=== PATIENT | female | born 1940 | race Caucasian/White ===

== ENCOUNTER → 2023-09-15 15:15 | Outpatient (REF) | payer MEDICARE, SELFPAY | LOC: WDC 15:15 | PROVIDERS: ATTENDING PHYSICIAN Surgery; FAMILY PHYSICIAN Family Medicine | DX: Z12.31 Encounter for screening mammogram for malignant neoplasm of breast (principal) | CPT/HCPCS: 77063; 77067 ==

== ENCOUNTER → 2024-02-08 10:31 | Outpatient (REF) | payer MEDICARE, SELFPAY ==
[2024-02-08 12:21] LABS: % Basophils 0.3 % (0-2); % Immature Granulocytes 0.3 % (0-0.5); % Lymphocytes 49.9 % (20.5-51.1); % Monocytes 5.2 % (1.7-9.3); % Neutrophils 39.3 % (42.2-75.2); Absolute Eosinophils 0.7 10^3/uL (0-0.7); Absolute Immature Granulocytes 0.1 10^3/uL (0-0.05); Absolute Lymphocytes 7.3 10^3/uL (1.2-3.4); Absolute Monocytes 0.8 10^3/uL (0.1-0.6); Absolute Neutrophils 5.7 10^3/uL (1.4-6.5); Hematocrit 43.7 % (37.0-47.0); Hemoglobin 14.8 g/dL (12.0-16.0); Mean Corp Hgb Conc. 33.9 g/dL (33.0-37.0); Mean Corpuscular Volume 94.4 fL (81.0-99.0); Mean Platelet Volume 10.2 fL (7.4-10.4); Nucleated Red Blood Cells % 0 %; Platelet Count 409 10^3/uL (130-400); Red Blood Cell Count 4.63 10^6/uL (4.20-5.40); Red Cell Dist. Width 12.5 % (11.5-14.5); White Blood Cell Count 14.6 10^3/uL (4.8-10.8)
[2024-02-08 12:53] LABS: ALT (SGPT) 16 U/L (0-35); AST (SGOT) 19 U/L (14-36); Albumin 3.9 g/dl (3.5-5.0); Alkaline Phosphatase 76 U/L (38-126); Blood Urea Nitrogen 13 mg/dl (7-17); Calcium 9.9 mg/dl (8.4-10.2); Carbon Dioxide 24 mmol/L (22-30); Chloride 105 mmol/L (98-107); Glucose 81 mg/dl (70-99); HDL Cholesterol 53 mg/dl; LDL Cholesterol, Calculated 124 mg/dl; Potassium 4.7 mmol/L (3.5-5.1); Sodium 143 mmol/L (135-145); Total Bilirubin 0.4 mg/dl (0.2-1.3); Total Cholesterol 212 mg/dl (50-199); Total Protein 6.3 g/dl (6.3-8.2); Triglyceride 179 mg/dl (10-149); Very Low Density Lipoprotein 35 mg/dl (0-30); eGFR > 60.00
[2024-02-08 13:15] LABS: TSH 2.01 uIU/ml (0.47-4.68)
== END ==
LOC: REG 10:31
PROVIDERS: ATTENDING PHYSICIAN Family Medicine
DX: Z00.00 Encounter for general adult medical examination without abnormal findings (principal); R79.9 Abnormal finding of blood chemistry, unspecified; E78.2 Mixed hyperlipidemia; Z13.1 Encounter for screening for diabetes mellitus; Z13.29 Encounter for screening for other suspected endocrine disorder
CPT/HCPCS: 36415; 80053; 80061; 84443; 85025

== ENCOUNTER → 2024-08-22 13:54 | Outpatient (REF) | payer MEDICARE, SELFPAY | LOC: RAD 13:54 | PROVIDERS: ATTENDING PHYSICIAN Family Medicine | DX: M53.3 Sacrococcygeal disorders, not elsewhere classified (principal) | CPT/HCPCS: 72110; 72202 ==

== ENCOUNTER 2024-09-21 12:09 | Emergency (ER) | payer MEDICARE, SELFPAY ==
[2024-09-21 12:11] VITALS: BP 144/85
--- NOTE | 2024-09-21 13:19 | ED.GENMED ---
History of Present Illness
General
Chief Complaint: Back Pain
Source: patient and family
Exam Limitations: none
Time Seen by Provider: 09/21/24 12:38
Nursing documentation reviewed up to this point in time: agreed with
History of Present Illness
History of Present Illness:
Patient is an 84-year-old female who presents today for evaluation of pain. Patient reports for the past 5 to 6 weeks she has had pain to the right buttocks, lower back which radiates and shoots down her right leg. She denies any trauma related to
this symptom. She was seen by her family doctor for this had an outpatient x-ray was diagnosed with compression fractures. She was prescribed steroids in the beginning however now is taking hydrocodone which is not working. She has appoint with
Dr. Hahn orthopedic/pain management on Monday and 2 days. She is here today' for pain management.'
She denies any numbness tingling or weakness in extremities. Denies any bowel or bladder incontinence. She has been able to walk but does report pain is worse with ambulation and weightbearing on this right leg. She denies any recent trauma.
Past History
Past History
ED Past Medical History: GERD, Psychiatric (depression) and Other (OA,)
ED Past Surgical History: None
Social History
Tobacco: Non-smoker
Personal:
Living: with family
Employment: Retired
Review of Systems
Review of Systems
Allergies reviewed?: Yes
All Other Systems: ROS reviewed and negative except as documented in HPI and ROS
Constitutional: Reports no symptoms; Denies fever, fatigue or chills
: Denies incontinence
Musculoskeletal: Reports back pain (right lower back pain radiating to right leg )
Skin: Reports no symptoms
Neurological: Reports no symptoms and other (denies numbness tingling /weakness )
Psychiatric: Reports no symptoms
Phy Exam
General Physical Exam
General Presentation: no apparent distress
General age: appears stated age
General Skin: warm and dry
General Habitus: elderly
General Mental: alert
General Hydration: appears well hydrated
Neurological Exam
Neurological Exam: alert, oriented x3, no motor deficits, normal reflexs and other (Normal intact sensation to bilateral lower extremities normal dorsiflexion plantarflexion negative straight leg raise normal bilateral patellar reflexes)
Musculoskeletal Exam
Musculoskeletal Exam: other (Normal inspection to back no bony tenderness)
Skin Exam
Skin Exam: normal color and warm/dry
Psychiatric Exam
Psychiatric Exam: normal mood/affect
Course
Orders/Labs/Results
Orders:
Orders
09/21/24 13:21
Acetaminophen [Tylenol] 650 mg PO NOW STA
Lidocaine [Lidocaine 4% Patch] 1 patch TOPICAL NOW STA
Apply Lidocaine patch(s) to:: right lower back
09/21/24 13:22
Dexamethasone Pf [Decadron] 10 mg PO NOW STA
Vital Signs
Initial and Last Documented VS:
Initial Vital Signs
Temp Pulse Resp BP Pulse Ox
99.1 F 72 16 144/85 97
09/21/24 12:11 09/21/24 12:11 09/21/24 12:11 09/21/24 12:11 09/21/24 12:11
Last Documented Vital Signs
Temp Pulse Resp BP Pulse Ox
99.1 F 72 16 144/85 97
09/21/24 12:11 09/21/24 12:11 09/21/24 12:11 09/21/24 12:11 09/21/24 12:11
MDM/Problems Addressed
MDM/Problems Addressed:
Lumbar x-ray reviewed from August 22 shows moderate compression fractures of L3 and L5 vertebral bodies new from prior radiographs progressive severe compression of L2 and chronic severe compression of L1 .
patient has had low back pain which radiates to her right leg sciatica symptoms for the past 5 to 6 weeks seen by her family doctor diagnosed with compression fracture scheduled to see Dr. Hahn on Monday. She presents because of pain. She is on
hydrocodone which is not helping. On exam she has no neurological deficits normal dorsiflexion plantarflexion negative straight leg raise normal sensation. I did watch her ambulate and she does ambulate well with mild discomfort. She is not
getting no relief from hydrocodone. I did discuss with her that this is not recommended as a first-line management for back pain especially given her age and other factors such as constipation drowsiness etc. Will give a dose of steroid now and
will send a higher dose longer taper to the pharmacy. Will recommend Tylenol lidocaine patch.
Chronic conditions affecting care:
History of previous degenerative changes in back
*Pulse Oximetry
Patient hypoxic: no
*Critical Care Note
Total Time (30-74mins, 75-104mins- exclusive of procedures): Not Applicable
Data Reviewed
Review of Other/Old Records Reveals: Radiology Studies and Other (Lumbar x-ray reviewed from 08/22/24)
ED Attending Note
-
Portions of this chart may have been created with voice recognition software.� Occasional wrong word or��sound alike� substitutions may have occurred due to the inherent limitations of voice recognition software.
Discharge Plan
Departure
Patient Disposition: Home (Routine Discharge)
Date of Disposition: 09/21/24
Time of Disposition: 13:25
Patient with high blood pressure during this ER visit?: Yes
Condition: Fair
Covid-19: Not Applicable
Discharge Problem:
Low back pain, Sciatica
Instructions: Low Back Pain (DC), Sciatica (DC), BLOOD PRESSURE
Prescriptions:
New
prednisone 10 mg Tablet
See Rx Instructions .ROUTE .COMPLEX Qty: 30 0RF
Rx Instructions:
Take By Mouth:
40 mg daily x3 days, 30 mg daily x3 days,
20 mg daily x3 days, 10 mg daily x3 days.
lidocaine 5 % adhesive patch,medicated
1 patch topical DAILY Qty: 15 0RF
No Action
hydrocodone-acetaminophen 5 MG/500 MG tablet
1 tab PO .Q4-6HPRN PRN (Reason: PAIN) Qty: 20 0RF
prednisone 50 MG tablet
50 mg PO DAILY Qty: 4 0RF
clindamycin HCl 300 MG capsule
300 mg PO TID Qty: 30 0RF
Referrals:
Mauro Hahn, DO [Non-Admitting Privileges] -
Activity Restrictions/Additional Instructions:
As discussed you are given 1 dose of oral steroid here in the ER. Start prescription steroids tomorrow for the next 12 days. Follow-up with Dr. Hahn as scheduled on Monday. A prescription for lidocaine patch was sent to pharmacy use as
directed; in addition alternate with Tylenol. Return if any worsening of symptoms including bowel or bladder incontinence weakness in the extremities or any further concerns
Discharge Date and Time
Print Language: MALAY
[2024-09-21] MEDS: LIDOCAINE 4% PATCH 1 PATCH TOPICAL (13:38)
[2024-09-21] MEDS: DECADRON 10 MG PO (13:39)
[2024-09-21] MEDS: TYLENOL 650 MG PO (13:39)
== END 2024-09-21 14:23 | disposition home or self-care (01) ==
LOC: EMR 12:09
PROVIDERS: EMERGENCY PHYSICIAN Emergency Medicine; FAMILY PHYSICIAN Family Medicine
DX: M54.41 Lumbago with sciatica, right side (principal); M48.56XA Collapsed vertebra, not elsewhere classified, lumbar region, initial encounter for fracture
CPT/HCPCS: 99283

== ENCOUNTER → 2024-09-27 13:12 | Outpatient (REF) | payer MEDICARE, SELFPAY | LOC: PAVMRI 13:12 | PROVIDERS: ATTENDING PHYSICIAN Physical Medicine & Rehabilitation; FAMILY PHYSICIAN Family Medicine | DX: M54.16 Radiculopathy, lumbar region (principal) | CPT/HCPCS: 72148 ==

== ENCOUNTER 2025-01-15 20:22 | Observation (INO) | payer MEDICARE, SELFPAY ==
[2025-01-15] VITALS (10 sets, daily range): BP systolic 123–193; BP diastolic 56–98; BMI 23.5
--- NOTE | 2025-01-15 15:37 | ED.GENMED ---
History of Present Illness
General
Chief Complaint: Back Pain
Source: patient
Exam Limitations: none
Time Seen by Provider: 01/15/25 15:26
History of Present Illness
History of Present Illness:
Patient complaining of 2 weeks of bilateral mid back pain with some radiation around to the abdomen. Slight nausea at times. No vomiting no diarrhea. No chest pain shortness of breath. No urinary symptoms or lower extremity weakness numbness or
tingling. No incontinence. Patient has a history of back issues. She has had injections in the past. She felt she twisted about 10 days prior to the onset of symptoms. However she had no symptoms until 10 days later.
Past History
Past History
ED Past Medical History: GERD, Psychiatric (depression) and Other (OA,)
ED Past Surgical History: Gynecological and Other ([place] teeth)
Social History
Tobacco: Non-smoker
Personal:
Living: with family
Employment: Retired
Review of Systems
Review of Systems
All Other Systems: Not applicable
Constitutional: Denies fever
Respiratory: Reports no symptoms
Cardiac: Reports no symptoms
: Reports no symptoms
Phy Exam
Physical Exam
Physical Exam:
GENERAL: Alert and oriented in no apparent distress
EYE: Orbits normal.
NECK: Supple, no significant adenopathy.
ENT: Pharynx without erythema
CARDIAC: Regular rate and rhythm without any obvious murmurs.
LUNGS: Clear breath sounds,normal
ABDOMEN: Soft, mild epigastric tenderness. No rebound or guarding no mass or hernia. No pulsatile masses.
NEUROLOGICAL: Alert and oriented , grossly non-focal
SKIN: Warm and dry, no rash or lesion, no discoloration, skin intact.
MUSCULOSKELETAL: No edema,no deformity.Good color. Patient points to the mid back. No spinal tenderness no CVA tenderness
PSYCH: Normal and appropriate interaction.
Course
Orders/Labs/Results
Orders:
Orders
01/15/25 Dinner
Regular
At Your Request: Full Participation
01/15/25 15:36
Electrocardiogram (*1) Stat
Reason for Study: Abdominal Pain
CT Abd/Pel (IV only)-DH only Urgent
Comment:
Reason For Exam: Abdominal pain/back pain
0.9% Sodium Chloride 500 ml [Nss] 500 ml IV BOLUS
Ketorolac [Toradol] 15 mg IV NOW STA
Pulse Ox/cont/shift [RESP] Stat
Quantity: 1
01/15/25 15:51
C-Reactive Protein Urgent
Comment: ADD ON
Complete Blood Count/With Diff Urgent
Comprehensive Metabolic Panel Urgent
Erythrocyte Sed Rate Urgent
Comment: ADD ON
Lipase Urgent
01/15/25 16:47
Add On- LAB Urgent
Tests Added?: crp,esr
01/15/25 17:12
Urinalysis Reflex To Culture Urgent
Date Specimen was Collected: 01/15/25
Time Specimen was Collected: 17:10
Urine Microscopic Reflex Cult Urgent
01/15/25 17:38
Acetaminophen [Tylenol] 650 mg PO NOW STA
Morphine Sulfate 2 mg IV NOW STA
01/15/25 19:57
Admit/Transfer Patient As Directed
Co-Sign Provider:
Level of Care: Observation services
Assign to:: Medical/Surgical
Physician / Group: davide
Diagnosis: intractable back pain
PRN Pain Medication Management As Directed
May give lesser potent ordered pain med per pt: Yes
preference::
Protocol:: Medication orders for pain may be administered in a
manner that supports deferring to patient preference
when the pt is:
- Requesting an ordered lesser potent pain medication.
Least to most potent pain medications are defined
as: acetaminophen < NSAID < tramadol < opioids
(morphine, oxycodone, hydromorphone).
- Requesting a lesser dose of the same medication IF
ORDERED.
- Requesting a less intrusive route of administration
if both routes are prescribed by the provider (PO <
IV).
01/15/25 19:58
Code Status As Directed
Resuscitation Status: Full Code
01/15/25 20:48
Morphine Sulfate 2 mg IV Q4HPRN PRN
01/15/25 21:02
Acetaminophen [Tylenol] 650 mg PO Q4HPRN PRN
Heparin 5,000 units SC Q12
Ketorolac [Toradol] 10 mg IV Q6HPRN PRN
01/15/25 21:02
Activity As Directed
Activity Level: As Tolerated
Vital Signs As Directed
Frequency: Per unit guidelines
DX Deep Vein Thrombosis Video Routine
01/16/25 06:00
Complete Blood Count/With Diff IN AM
Comprehensive Metabolic Panel IN AM
Abnormal Lab Results
01/15/25 01/15/25
15:51 17:12
WBC 16.4 H 10^3/uL
(4.8-10.8)
MCH 31.4 H pg
(27.0-31.0)
Plt Count 522 H 10^3/uL
(130-400)
Abs Immat Gran (auto) 0.1 H 10^3/uL
(0-0.05)
Absolute Neuts (auto) 9.1 H 10^3/uL
(1.4-6.5)
Absolute Lymphs (auto) 6.0 H 10^3/uL
(1.2-3.4)
Absolute Monos (auto) 1.1 H 10^3/uL
(0.1-0.6)
ESR 23 H mm/hour
(0-20)
Sodium 134 L mmol/L
(135-145)
Lipase 22 L U/L
(23-300)
Urine Ketones 3+ A
(Negative)
Urine Bacteria (Reflex) Few A
(Negative)
Urine Albumin (Reflex) 1+ A
(Neg - Trace)
01/15/25 15:51
01/15/25 15:51
Vital Signs
Initial and Last Documented VS:
Initial Vital Signs
Temp Pulse Resp BP Pulse Ox
98.0 F 72 16 152/84 98
01/15/25 13:11 01/15/25 13:11 01/15/25 13:11 01/15/25 13:11 01/15/25 13:11
Last Documented Vital Signs
Temp Pulse Resp BP Pulse Ox
98.1 F 63 20 177/91 93
01/15/25 21:19 01/15/25 21:19 01/15/25 21:19 01/15/25 21:19 01/15/25 21:19
MDM/Problems Addressed
Differential Diagnosis Includes:
Patient with progressive low back pain over weeks. History of back issues. This may be musculoskeletal however with the pain radiating around to the mid abdomen and some nausea and abdominal etiology or referred pain to the back would have to be
considered. He highly doubt cardiac. Highly doubt neurosurgical issue. She has good lower extremity strength. Good plantar and dorsi flexion. Light touch is intact. No bowel incontinence or urinary incontinence. Workup in progress
*Radiology
Radiology exam reviewed: radiology read reviewed (Multiple degenerative changes and compression fractures of the back. All old. Appendicolith. Slightly dilated appendix. No stranding or inflammatory changes)
*Pulse Oximetry
SaO2: 98
Oxygen Mode of Delivery: Room air
Patient hypoxic: no
*Critical Care Note
Total Time (30-74mins, 75-104mins- exclusive of procedures): Not Applicable
Data Reviewed
Review of Other/Old Records Reveals: Labs, Records and Testing
Update Note
Update Note:
Clinically I feel patient's symptoms are likely all from her back. Highly doubt infectious issue despite the white count. There is sed rate and CRP are normal she has a normal neurologic exam and good lower extremity strength. She also has an
appendicolith and a white count although no other acute findings to support appendicitis. Clinically very low suspicion for appendicitis as she has no lower quadrant tenderness. This is likely a chronic finding. Warrants further inpatient
observation pain management and evaluation
ED Attending Note
-
Portions of this chart may have been created with voice recognition software.� Occasional wrong word or��sound alike� substitutions may have occurred due to the inherent limitations of voice recognition software.
Discharge Plan
Departure
Patient Disposition: Admit
Date of Disposition: 01/15/25
Time of Disposition: 19:31
Presentation/result/management discussed w/ accepting MD/DO: Hospitalist
Discharge Problem:
Intractable back pain, APPENDICOLITH
Interventions
Interventions:
*Risk Screen - Suicide Last Done: 01/15/25 13:11
*General Assessment Last Done: 01/15/25 16:00
*Neglect/Abuse Screening Last Done: 01/15/25 13:11
*ED COVID-19 Vaccine History Last Done: 01/15/25 16:00
*Nursing Disposition Last Done: 01/15/25 21:08
ED-Musculoskeletal Assessment Last Done: 01/15/25 16:00
Discharge Date and Time
Discharge Date/Time: 01/15/25 21:08
[2025-01-15] MEDS: TORADOL 15 MG IV (15:49)
[2025-01-15] MEDS: NSS 500 IV (15:51)
[2025-01-15 15:57] LABS: Hematocrit 42.0 % (37.0-47.0); Hemoglobin 14.3 g/dL (12.0-16.0); Mean Corp Hgb Conc. 34.0 g/dL (33.0-37.0); Mean Corpuscular Volume 92.3 fL (81.0-99.0); Nucleated Red Blood Cells % 0 %; Platelet Count 522 10^3/uL (130-400); Red Cell Dist. Width 12.2 % (11.5-14.5)
[2025-01-15 16:13] LABS: ALT (SGPT) 15 U/L (0-35); AST (SGOT) 19 U/L (14-36); Albumin 4.0 g/dl (3.5-5.0); Alkaline Phosphatase 69 U/L (38-126); Blood Urea Nitrogen 10 mg/dl (7-17); Calcium 9.5 mg/dl (8.4-10.2); Carbon Dioxide 23 mmol/L (22-30); Chloride 104 mmol/L (98-107); Glucose 94 mg/dl (70-99); Lipase 22 U/L (23-300); Potassium 4.3 mmol/L (3.5-5.1); Sodium 134 mmol/L (135-145); Total Protein 6.4 g/dl (6.3-8.2); eGFR > 60.00
[2025-01-15 17:27] LABS: Urine Character Clear (Clear)
[2025-01-15 17:37] LABS: Urine Red Blood Cell 0-2 /HPF (0-2)
[2025-01-15 17:43] LABS: C-Reactive Protein 6.10 mg/L (0.0-10.00)
[2025-01-15] MEDS: TYLENOL 650 MG PO ×2 (17:48→21:41)
[2025-01-15] MEDS: MORPHINE SULFATE 2 MG IV ×2 (17:49→20:53)
--- NOTE | 2025-01-15 19:59 | HPS.HSE ---
Family Physician
-
Family Physician: Alesha Schaffer MD
Chief Complaint
-
back pain
History of Present Illness
back pain
Medical History
Past Medical History
Past Medical History: Reports Other (chronic back pain/arthritis status post steroid injections, GERD, depression)
Past Surgical History: Reports Gynocological
Social History
Tobacco: Non-smoker
Alcohol: None
Drug: None
Family History
Family History: Not pertinent
Allergies / Home Medications
Allergies reflects when Allergies were last updated in [facility].
Home Medications with original date entered in [facility]
Allergy/Medication List:
Allergies
Allergy/AdvReac Type Severity Reaction Status Date / Time
Penicillins Allergy Hives Verified 01/15/25 13:13
Home Medications
hydrocodone 5 mg-acetaminophen 500 mg tablet 1 tab PO .Q4-6HPRN PRN PAIN #20 tabs 09/13/09
clindamycin HCl 300 mg capsule 300 mg PO TID #30 caps 11/29/17
prednisone 50 mg tablet 50 mg PO DAILY #4 tabs 11/29/17
lidocaine 5 % topical patch 1 patch topical DAILY #15 ea 09/21/24
prednisone 10 mg tablet See Rx Instructions .Route .COMPLEX #30 tabs 09/21/24
Review of Systems
-
Constitutional: Reports No Symptoms
EENT: Reports No Symptoms
Respiratory: Reports No Symptoms
Cardiac: Reports No Symptoms
Abdomen/GI: Reports No Symptoms
: Reports No Symptoms
Musculoskeletal: Reports No Symptoms
Skin: Reports No Symptoms
Neurological: Reports No Symptoms
Endocrine: Reports No Symptoms
Hematologic/Lymphatic: Reports No Symptoms
Psych: Reports No Symptoms
Physical Exam
Vital Signs
Vital Signs
Temp Pulse Resp BP Pulse Ox
98.0 F 72 16 152/84 98
01/15/25 13:11 01/15/25 13:11 01/15/25 13:11 01/15/25 13:11 01/15/25 15:42
Physical Exam
General: Well Developed, Well Nourished and No Apparent Distress
HEENT: NormoCephalic, Moist mucous membranes and Atraumatic
Respiratory: Clear
Cardiac: S1/S2 and Regular Rhythm; No Murmur or Rub
GI: Soft, Non Tender, Non Distended and Normal Bowel Sounds; No Organomegaly
Rectal: Deferred by Provider
Musculoskeletal: No Clubbing, No Cyanosis and No Edema
Skin: No Rash
Neuro: Nonfocal/grossly intact
Laboratory Results
-
01/15/25 15:51
01/15/25 15:51
Laboratory Results
Total Bilirubin 0.6 mg/dl (0.2-1.3) 01/15/25 15:51
AST 19 U/L (14-36) 01/15/25 15:51
ALT 15 U/L (0-35) 01/15/25 15:51
Alkaline Phosphatase 69 U/L (38-126) 01/15/25 15:51
Lipase 22 U/L (23-300) L 01/15/25 15:51
Data Reviewed
-
Lab Data: Labs Reviewed by me
Old Records: Reviewed
Impression/Plan
-
IMPRESSION:
PLAN:
# Intractable right lower back pain with radiation to the right abdomen likely musculoskeletal less likely secondary to appendiccolith
# Recent fall
- CT abdomen pelvis shows dilated base of the appendix containing appendicolith without inflammatory stranding to confirm acute appendicitis which may be chronic
-Urinalysis negative
- Tylenol, ketorolac, morphine for pain
- May require general surgery consult tomorrow if pain does not improve
Chronic back pain/osteoarthritis status post joint injections
GERD
Depression
Full code
DVT prophylaxis�heparin
Regular diet
[2025-01-15] MEDS: HEPARIN 5000 UNITS SC (21:14)
[2025-01-15] MEDS: TORADOL 10 MG IV (21:42)
[2025-01-16] MEDS: MORPHINE SULFATE 2 MG IV ×2 (01:13→07:35)
[2025-01-16] MEDS: HEPARIN 5000 UNITS SC ×2 (07:32→20:54)
[2025-01-16 07:56] LABS: Hematocrit 37.0 % (37.0-47.0); Hemoglobin 12.4 g/dL (12.0-16.0); Mean Corp Hgb Conc. 33.5 g/dL (33.0-37.0); Mean Corpuscular Volume 92.3 fL (81.0-99.0); Nucleated Red Blood Cells % 0 %; Platelet Count 474 10^3/uL (130-400); Red Cell Dist. Width 11.9 % (11.5-14.5)
[2025-01-16 08:00] VITALS: BP 178/92
[2025-01-16 08:48] LABS: ALT (SGPT) 25 U/L (0-35); AST (SGOT) 38 U/L (14-36); Albumin 3.2 g/dl (3.5-5.0); Alkaline Phosphatase 58 U/L (38-126); Blood Urea Nitrogen 11 mg/dl (7-17); Calcium 8.8 mg/dl (8.4-10.2); Carbon Dioxide 22 mmol/L (22-30); Chloride 106 mmol/L (98-107); Estimated Creatinine Clearance 59 ml/min; Glucose 82 mg/dl (70-99); Potassium 4.0 mmol/L (3.5-5.1); Sodium 134 mmol/L (135-145); Total Protein 5.4 g/dl (6.3-8.2); eGFR > 60.00
[2025-01-16] MEDS: TORADOL 10 MG IV (11:22)
[2025-01-16] MEDS: LIDOCAINE 4% PATCH 1 PATCH TOPICAL (12:16)
[2025-01-16] MEDS: MORPHINE SULFATE 4 MG IV ×2 (12:26→20:47)
--- NOTE | 2025-01-16 13:59 | W.PN.HOSP.TC ---
Today's Communication/Plan
-
Pain control
Flexeril
Lidocaine patch
PT
Assessment / Plan
Assessment / Plan
Physical Exam
General: Well Developed, Well Nourished and No Apparent Distress
HEENT: NormoCephalic, Moist mucous membranes and Atraumatic
Respiratory: Clear
Cardiac: S1/S2 and Regular Rhythm; No Murmur or Rub
GI: Soft, Non Tender, Non Distended and Normal Bowel Sounds; No Organomegaly
Rectal: Deferred by Provider
Musculoskeletal: No Clubbing, No Cyanosis and No Edema; Tenderness to lower paraspinal areas
Skin: No Rash
Neuro: Nonfocal/grossly intact
PLAN:
# Intractable right lower back pain with radiation to the right abdomen likely musculoskeletal less likely secondary to appendiccolith
# Recent fall
� Abdomen nondistended, nontender, appears nontoxic
� Pain is present paraspinally in the lower back, similar to previous episodes. Exacerbated after fall.
� I do not suspect this is secondary to any appendix/GI related issue at this time
� PT eval
� Add Flexeril
� Pain control
� Medrol pack if needed
� Lidocaine patch
� Will benefit from orthospine eval outpatient, has been following Dr. Hahn prior
Chronic back pain/osteoarthritis status post joint injections
GERD
Depression
Full code
DVT prophylaxis�heparin
Regular diet
Anticipated Discharge: Within 24 hours
Subjective/Interval History
-
Date of Service: January 16, 2025
Pain still present although on paraspinal areas bilaterally, with no abdominal tenderness or distention
Objective Data
-
Labs:
Laboratory Results
01/16/25
07:45
WBC 12.5 H
Hgb 12.4
Hct 37.0
Plt Count 474 H
Sodium 134 L
Potassium 4.0
Chloride 106
Carbon Dioxide 22
BUN 11
Creatinine 0.6
Glucose 82
Calcium 8.8
Total Bilirubin 0.5
AST 38 H
ALT 25
Alkaline Phosphatase 58
Vital Signs:
Vital Signs
Temp Pulse Resp BP Pulse Ox
97.7 F 62 16 178/92 95
01/16/25 08:00 01/16/25 08:00 01/16/25 08:00 01/16/25 08:00 01/16/25 08:00
Review of Systems
-
History Source: Patient
All other systems: Not reviewed unless documented
Data Reviewed
-
CT Scan: Report Reviewed by me
Labs: Labs Reviewed by me
--- NOTE | 2025-01-16 14:10 | CM ---
IA completed. DEL RIO given and form placed on chart. Met with pt and sister. Lives alone in 2 story home with BR on first floor. Was fully independent until pain exacerbation.No hx of HH, VN or SNF. Has walker, crutches and SPC at home. Confirmed PCP.
Rx insurance and drug coverage. NO insecurities identified. Family inquired about PT evaluation when pain is controlled. Per Dr. Flanagan, PT will be ordered when pain is controlled
Plan: Home with no needs
PCP: Alesha Schaffer
Rx. [facility].
[2025-01-16 15:35] VITALS: BP 139/76; PULSE 55
[2025-01-16 16:08] VITALS: BP 160/72
[2025-01-16] MEDS: REMOVE LIDOCAINE PATCH 1 PATCH REMOVE (20:54)
[2025-01-16 23:00] VITALS: BP 187/76
[2025-01-17] MEDS: TORADOL 10 MG IV ×2 (00:05→13:45)
[2025-01-17 04:03] VITALS: BP 154/79
[2025-01-17 07:00] VITALS: BP 182/93
[2025-01-17] MEDS: MORPHINE SULFATE 4 MG IV ×2 (07:52→11:53)
[2025-01-17] MEDS: HEPARIN 5000 UNITS SC (07:53)
[2025-01-17] MEDS: LIDOCAINE 4% PATCH 1 PATCH TOPICAL (07:54)
[2025-01-17 08:46] LABS: Hematocrit 37.9 % (37.0-47.0); Hemoglobin 12.8 g/dL (12.0-16.0); Mean Corp Hgb Conc. 33.8 g/dL (33.0-37.0); Mean Corpuscular Volume 92.0 fL (81.0-99.0); Platelet Count 497 10^3/uL (130-400); Red Cell Dist. Width 11.9 % (11.5-14.5)
[2025-01-17 09:14] LABS: ALT (SGPT) 46 U/L (0-35); AST (SGOT) 37 U/L (14-36); Albumin 3.2 g/dl (3.5-5.0); Alkaline Phosphatase 65 U/L (38-126); Blood Urea Nitrogen 14 mg/dl (7-17); Calcium 9.1 mg/dl (8.4-10.2); Carbon Dioxide 22 mmol/L (22-30); Chloride 107 mmol/L (98-107); Estimated Creatinine Clearance 59 ml/min; Glucose 84 mg/dl (70-99); Potassium 4.0 mmol/L (3.5-5.1); Sodium 135 mmol/L (135-145); Total Protein 5.4 g/dl (6.3-8.2); eGFR > 60.00
--- NOTE | 2025-01-17 11:36 | W.PN.HOSP.TC ---
Addendum entered and electronically signed by Rajinder Flanagan MD 01/17/25 14:52:
[id number]
Original Note:
Today's Communication/Plan
-
Lidocaine patch
Flexeril
F/u Orthospine outpt
outpatient pt
Assessment / Plan
Assessment / Plan
Physical Exam
General: Well Developed, Well Nourished and No Apparent Distress
HEENT: NormoCephalic, Moist mucous membranes and Atraumatic
Respiratory: Clear
Cardiac: S1/S2 and Regular Rhythm; No Murmur or Rub
GI: Soft, Non Tender, Non Distended and Normal Bowel Sounds; No Organomegaly
Rectal: Deferred by Provider
Musculoskeletal: No Clubbing, No Cyanosis and No Edema; Tenderness to lower paraspinal areas
Skin: No Rash
Neuro: Nonfocal/grossly intact
PLAN:
# Intractable right lower back pain with radiation to the right abdomen likely musculoskeletal less likely secondary to appendiccolith
# Recent fall
� Abdomen nondistended, nontender, appears nontoxic
� Pain is present paraspinally in the lower back, similar to previous episodes. Exacerbated after fall. - Improved after lidocaine patch
� I do not suspect this is secondary to any appendix/GI related issue at this time
� PT eval
� Add Flexeril
� Pain control
� Lidocaine patch - worked well
� Will benefit from orthospine eval outpatient, has been following Dr. Hahn prior
Chronic back pain/osteoarthritis status post joint injections
GERD
Depression
Full code
DVT prophylaxis�heparin
Regular diet
More than 30 minutes spent in discharge including
Final examination of the patient
Summarizing hospital stay
Instructions for continuing care to all relevant caregivers
Preparation of discharge records, prescriptions, and referral forms
Total time spent (in minutes): 36
Anticipated Discharge: Today
Subjective/Interval History
-
Date of Service: January 17, 2025
much improved
Objective Data
-
Labs:
Laboratory Results
01/17/25
08:34
WBC 10.5
Hgb 12.8
Hct 37.9
Plt Count 497 H
Sodium 135
Potassium 4.0
Chloride 107
Carbon Dioxide 22
BUN 14
Creatinine 0.6
Glucose 84
Calcium 9.1
Total Bilirubin 0.6
AST 37 H
ALT 46 H
Alkaline Phosphatase 65
Vital Signs:
Vital Signs
Temp Pulse Resp BP Pulse Ox
97.9 F 62 18 182/93 96
01/17/25 07:00 01/17/25 07:00 01/17/25 07:00 01/17/25 07:00 01/17/25 07:00
I&O
01/16/25 01/17/25 01/18/25
06:59 06:59 06:59
Intake Total 120 / 120
Balance 120 / 120
Review of Systems
-
History Source: Patient
All other systems: Not reviewed unless documented
Data Reviewed
-
CT Scan: Report Reviewed by me
Labs: Labs Reviewed by me
[2025-01-17] MEDS: FLEXERIL 5 MG PO (11:57)
--- NOTE | 2025-01-17 12:12 | W.DS.TRANS ---
DC Summary - Test Analyst
-
Discharge Instructions:
Discharge Diagnosis/Procedures Intractable lower paraspinal back pain likely
musculoskeletal
Activity As tolerated
Blood Work cbc and cmp in 1 week with pcp
Instructions:
Stand-Alone Forms:
Changes to Home Medications: No
Discharge Medications:
DC Medications w/original date entered in [facility]
acetaminophen 325 mg tablet 650 mg (2 x 325 mg) PO Q4HPRN PRN mild pain/PATEL/temp> 100.4F #180 tabs 01/17/25
ascorbic acid (vitamin C) 500 mg tablet (Vitamin C) 500 mg PO DAILY 01/17/25
cyclobenzaprine 10 mg tablet 5 mg (1/2 x 10 mg) PO Q8HPRN PRN spasms #15 tabs 01/17/25
fluoxetine 20 mg capsule 20 mg PO DAILY 01/17/25
gabapentin 400 mg tablet 400 mg PO TID 01/17/25
ibuprofen 200 mg tablet (Advil) 400 mg PO Q6HPRN PRN mild pain 01/17/25
lidocaine 4 % topical patch 1 patch topical DAILY #30 ea 01/17/25
mirtazapine 30 mg tablet 30 mg PO HS 01/17/25
omeprazole 20 mg tablet,delayed release 20 mg PO DAILY 01/17/25
therapeutic multivitamin 1 tab PO DAILY 01/17/25
Home Medication Changes
na
Pending Results: No
--- NOTE | 2025-01-17 13:15 | CM ---
Reviewed chart. Met with patient and family member at bedside. Pt is interested in home care and has selected [facility]. [facility]
Plan: Home with [facility]
[2025-01-17] MEDS: TYLENOL 650 MG PO (13:44)
--- NOTE | 2025-01-17 13:56 | VNURNOTE ---
Home Health Liaison met with patient at bedside to discuss [facility] nurse/therapy, visits, schedule and homebound status. Patient is agreeable and understands that visits at home will be 2-3 x per week to assess and teach medical management. Patient
is aware that [facility] will contact them for start of care in 1-2 days after discharge from . Patient is interested in only 1-2 VN visits, more interested in home PT. Will note on referral.
[facility] referral completed in [facility].
[2025-01-17 15:00] VITALS: BP 136/63
== END 2025-01-17 15:20 | disposition home health service (06) ==
LOC: 4 WEST ACU 20:22
PROVIDERS: ADMITTING PHYSICIAN Hospitalist; ATTENDING PHYSICIAN Internal Medicine; EMERGENCY PHYSICIAN Emergency Medicine; FAMILY PHYSICIAN Family Medicine
DX: M54.50 Low back pain, unspecified (principal); F32.A Depression, unspecified; K21.9 Gastro-esophageal reflux disease without esophagitis; G89.29 Other chronic pain
CPT/HCPCS: 74177; 80053; 81003; 81015; 83690; 85025; 85027; 85652; 86140; 93005; 96361; 96374; 96375; 97161; 99285; G0378; Q9967

== ENCOUNTER 2025-01-21 10:57 | Inpatient (IN) | payer MEDICARE, SELFPAY ==
[2025-01-18 17:52] VITALS: BP 144/90
[2025-01-18 20:25] VITALS: BMI 22.6
[2025-01-18] MEDS: ZOFRAN 4 MG IV (22:29)
[2025-01-18] MEDS: MORPHINE SULFATE 2 MG IV (22:32)
--- NOTE | 2025-01-18 23:18 | ED.GENMED ---
History of Present Illness
General
Chief Complaint: Back Pain
Source: patient and family
Exam Limitations: none
Time Seen by Provider: 01/18/25 20:20
Nursing documentation reviewed up to this point in time: agreed with
History of Present Illness
History of Present Illness:
Note:
CHIEF COMPLAINT(S)
Severe back pain persisting since a fall in December.
HISTORY OF PRESENT ILLNESS
The patient is an 84-year-old female who presents with persistent back pain following a fall in December where she twisted and landed on her back. Since the incident, she has been experiencing continuous pain which has not substantially resolved with
the current regimen. The patient reports that she had imaging of her lumbar spine, including a magnetic resonance imaging (MRI) and a computed tomography (CT) scan, and was discharged from her last admission despite persistent pain.
In the past, the patient has received therapeutic injections for her back pain, which provided temporary relief; however, these interventions are no longer effective. She currently uses lidocaine patches, which helped initially but no longer
alleviate the pain significantly. The patient lives alone and expresses difficulty managing her activities of daily living due to severe pain, expressing that movement, including walking and even getting to the bathroom, is substantially limited.
The patient was seen a few days ago, underwent a CT scan, and was admitted for two nights due to severe back pain. The recent hospitalization did not result in significant pain relief, and the patient reports experiencing confusion, complicating her
ability to manage at home. There is a suggestion of a potential adverse reaction to medication provided during her recent admission.
ADDITIONAL HISTORY OBTAINED FROM SOURCES OTHER THAN THE PATIENT
According to the patients relative, Dr. Hahn, an intervention specialist, has previously provided injections that were effective during the spring prior to the fall in December, but the patient has not seen him for follow-up care since the incident.
SOCIAL DETERMINANTS AFFECTING HEALTH
The patient lives alone, which poses a safety risk considering her current level of pain and impaired mobility. She lacks a support system that could assist her with daily activities or emergencies.
REVIEW OF SYSTEMS
- Musculoskeletal: Chronic back pain since December, worsening post-fall.
- Neurological: Confusion noted during recent hospital admission.
PHYSICAL EXAM
General: Alert, in distress due to pain.
Musculoskeletal: Pain reported on leg lifts and movements suggestive of exacerbation of back pain.
PROBLEM LIST
Acute Problems:
- Severe back pain following a fall and twisting injury.
Chronic Problems:
- Chronic back pain requiring past orthopedic interventions.
PLAN
- Administer a small dose of morphine to manage acute pain.
- Admit for case management to address safety concerns in the home environment due to severe pain and impaired mobility.
- Evaluate the patients pain management plan and consider a rehabilitation facility for sustained care and pain control.
DIFFERENTIAL DIAGNOSIS
The Differential Diagnosis includes, in no particular order and is not limited to:
1. Lumbar spine pain. Previous CT neg for fx
2. Musculoskeletal strain or sprain
3. Degenerative disc disease
4. Spinal stenosis
5. Osteoarthritis
6. Radiculopathy
7. Sacroiliitis
8. Vertebral compression fracture
9. Lumbar herniated disc
10. Acute exacerbation of chronic back pain
Disposition:
SUMMARY OF ENCOUNTER
The patient, an 84-year-old female, presented to the emergency department due to chronic low back pain, which persists despite previous hospital admission and treatment with lidocaine patches. She reports her pain level has not changed since being
discharged. Her daughter is concerned about her living alone, especially if pain management is escalated. Its acknowledged by both the patient and her daughter that a jail facility or rehabilitation facility might be necessary.
DISPOSITION
Admit
ASSESSMENT
Chronic low back pain unresponsive to current pain management strategies.
PLAN
Admit the patient to the hospital service for enhanced pain management and evaluate for possible transfer to a jail or rehabilitation facility for better support and care.
MEDICATION RECONCILIATION
Current use of lidocaine patches as pain management, though deemed ineffective at this time.
MEDICAL DECISION MAKING
-Complexity of Data Reviewed: Chronic conditions affecting care including chronic back pain since the fall in December. Differential diagnosis includes lumbar spine fracture, musculoskeletal strain or sprain, degenerative disc disease, spinal stenosis,
osteoarthritis, radiculopathy, sacroiliitis, vertebral compression fracture, lumbar herniated disc, and acute exacerbation of chronic back pain.
-Data:
Category 2: Clinical information was obtained from an independent historian, the patients daughter, who provided input on the patients living situation and need for potential placement in a facility.
-Risk: Decisions to escalate care by admitting the patient for appropriate pain management and evaluation for safer living arrangements due to social determinants affecting health, as the patient lives alone with inadequate pain control and mobility
issues.
DIAGNOSIS
Chronic low back pain, ICD-10 code M54.5.
Past History
Past History
ED Past Medical History: GERD, Psychiatric (depression) and Other (OA,)
ED Past Surgical History: Gynecological and Other ([place] teeth)
Social History
Tobacco: Non-smoker
Personal:
Living: with family
Employment: Retired
Phy Exam
General Physical Exam
General Presentation: moderate distress
General age: appears stated age
General Skin: warm
General Habitus: elderly
General Mental: alert
General Hydration: appears well hydrated
Course
Orders/Labs/Results
Orders:
Orders
01/18/25 21:52
Case Management Consult ONCE
Case Management Consult: Discharge Planning
Comment: Lives alone, was discharged yesterday for intractable back pain. Home meds are not relieving her
pain. Family is concerned because she lives alone would prefer that she go to a jail
facility
Morphine Sulfate 2 mg IV NOW STA
Ondansetron Injectable [Zofran] 4 mg IV NOW STA
01/18/25 23:20
Lumbar Spine Complete, 4 View [CR Lumbar Spine Comp Min 4 Vw*] Urgent
Comment:
Reason For Exam: back pain
Vital Signs
Initial and Last Documented VS:
Initial Vital Signs
Temp Pulse Resp BP Pulse Ox
98.2 F 76 16 144/90 97
01/18/25 17:52 01/18/25 17:52 01/18/25 17:52 01/18/25 17:52 01/18/25 17:52
Last Documented Vital Signs
Temp Pulse Resp BP Pulse Ox
98.2 F 76 16 144/90 99
01/18/25 17:52 01/18/25 17:52 01/18/25 17:52 01/18/25 17:52 01/18/25 23:20
*Pulse Oximetry
SaO2: 99
Oxygen Mode of Delivery: Room air
Patient hypoxic: no
*Critical Care Note
Total Time (30-74mins, 75-104mins- exclusive of procedures): Not Applicable
ED Attending Note
-
Portions of this chart may have been created with voice recognition software.� Occasional wrong word or��sound alike� substitutions may have occurred due to the inherent limitations of voice recognition software.
Discharge Plan
Departure
Patient Disposition: Admit
Date of Disposition: 01/18/25
Time of Disposition: 23:22
Presentation/result/management discussed w/ accepting MD/DO: Hospitalist
Discharge Problem:
Acute exacerbation of chronic low back pain
Prescriptions:
No Action
cyclobenzaprine 10 mg Tablet
5 mg PO Q8HPRN PRN (Reason: spasms) Qty: 15 0RF
lidocaine 4 % Adhesive Patch,Medicated
1 patch topical DAILY Qty: 30 0RF
acetaminophen 325 mg Tablet
650 mg PO Q4HPRN PRN (Reason: mild pain/PATEL/temp> 100.4F) Qty: 180 0RF
therapeutic multivitamin Tablet
1 tab PO DAILY
ascorbic acid (vitamin C) [Vitamin C] 500 mg Tablet
500 mg PO DAILY
mirtazapine 30 mg Tablet
30 mg PO HS
ibuprofen [Advil] 200 mg Tablet
400 mg PO Q6HPRN PRN (Reason: mild pain)
fluoxetine 20 mg Capsule
20 mg PO DAILY
gabapentin 400 mg Tablet
400 mg PO TID
omeprazole 20 mg Tablet,Delayed Release (Dr/Ec)
20 mg PO DAILY
Referrals:
Alesha Schaffer MD [Family Provider, Family Practice]
Interventions
Interventions:
*Risk Screen - Suicide Last Done: 01/18/25 17:52
*General Assessment Last Done: 01/18/25 20:26
*Neglect/Abuse Screening Last Done: 01/18/25 17:52
*ED- Fall Risk Assessment Last Done: 01/18/25 20:26
*ED COVID-19 Vaccine History Last Done: 01/18/25 20:26
ED-Musculoskeletal Assessment Last Done: 01/18/25 20:26
Discharge Date and Time
Print Language: MONGOLIAN
--- NOTE | 2025-01-19 00:14 | HPS.HSE ---
Family Physician
-
Family Physician: Alesha Schaffer MD
Chief Complaint
-
Back pain
History of Present Illness
Is an 84-year-old female with past medical history of GERD, depression, chronic back pain following fall in December will presents to the emergency department after being discharged from the hospital for similar complaints.
Patient was seen 2 days ago for intractable lower back pain and radiating to the abdomen, nontender and no rebound pain or distention. Pain was felt secondary to musculoskeletal resolved back pain for which she follows with Dr. Hahn. She was
monitoring as below, she was given lidocaine patch and Flexeril was added. She had good improvement at that time and was felt stable enough to go home after being admitted for 2 nights.
She now states that recentralization did not result in significant pain relief and she is experiencing some confusion complicating ability to manage at home. Only new medication was a Flexeril. She has been on gabapentin prior to the admission.
In the emergency department she was afebrile, hemodynamically stable with a blood pressure of 140/90 and a pulse rate of 76.
Reviewed prior imaging from her last admission showing no acute findings.
Medical History
Past Medical History
Past Medical History: Reports Other (chronic back pain/arthritis status post steroid injections, GERD, depression)
Past Surgical History: Reports Gynocological
Social History
Tobacco: Non-smoker
Alcohol: None
Drug: None
Family History
Family History: Not pertinent
Allergies / Home Medications
Allergies reflects when Allergies were last updated in [employer].
Home Medications with original date entered in [employer]
Allergy/Medication List:
Allergies
Allergy/AdvReac Type Severity Reaction Status Date / Time
Penicillins Allergy Hives Verified 01/15/25 13:13
Home Medications
hydrocodone 5 mg-acetaminophen 500 mg tablet 1 tab PO .Q4-6HPRN PRN PAIN #20 tabs 09/13/09
clindamycin HCl 300 mg capsule 300 mg PO TID #30 caps 11/29/17
prednisone 50 mg tablet 50 mg PO DAILY #4 tabs 11/29/17
lidocaine 5 % topical patch 1 patch topical DAILY #15 ea 09/21/24
prednisone 10 mg tablet See Rx Instructions .Route .COMPLEX #30 tabs 09/21/24
Review of Systems
-
Constitutional: Reports No Symptoms
EENT: Reports No Symptoms
Respiratory: Reports No Symptoms
Cardiac: Reports No Symptoms
Abdomen/GI: Reports No Symptoms
: Reports No Symptoms
Musculoskeletal: Reports No Symptoms
Skin: Reports No Symptoms
Neurological: Reports No Symptoms
Endocrine: Reports No Symptoms
Hematologic/Lymphatic: Reports No Symptoms
Psych: Reports No Symptoms
Physical Exam
Vital Signs
Vital Signs
Temp Pulse Resp BP Pulse Ox
98.2 F 76 16 144/90 99
01/18/25 17:52 01/18/25 17:52 01/18/25 17:52 01/18/25 17:52 01/18/25 23:20
Physical Exam
General: Well Developed, Well Nourished and No Apparent Distress
HEENT: NormoCephalic, Moist mucous membranes and Atraumatic
Respiratory: Clear
Cardiac: S1/S2 and Regular Rhythm; No Murmur or Rub
GI: Soft, Non Tender, Non Distended and Normal Bowel Sounds; No Organomegaly
Rectal: Deferred by Provider
Musculoskeletal: No Clubbing, No Cyanosis and No Edema
Skin: No Rash
Neuro: Nonfocal/grossly intact
Data Reviewed
-
Lab Data: Labs Reviewed by me
Old Records: Reviewed
Impression/Plan
-
IMPRESSION:
Patient was just admitted for chronic intractable back pain radiating to the right abdomen that was felt to be musculoskeletal. She was started on lidocaine patch and Flexeril with improvement and then discharged to home after being observed for 2
days. Patient unable to manage at home due to pain and is basically coming in for ambulatory dysfunction.
PLAN:
Chronic back pain and ambulatory dysfunction:
- admit to med/surg obs
- continue pain management with tylenol, toradol and gabapentin
- will hold off on flexeril for now
- continue lidocaine patch
- pt eval when pain beter control for possible STR
- outpatient ortho/spine eval
DVT prophylaxis�heparin sq
Full code
[2025-01-19] MEDS: TORADOL 10 MG IV ×3 (01:12→23:00)
[2025-01-19 02:51] VITALS: BP 172/70; BMI 24.4
[2025-01-19] MEDS: DILAUDID 0.5 MG IV (03:11)
--- NOTE | 2025-01-19 03:20 | PTCARENOTE ---
pt admit to room 413 from ED via stretcher. Ambulated into room with assist of staff. Pt has considerable amount of pain. Assessment as charted. Med for pain as ordered. Bed alarm in place.
[2025-01-19 07:09] VITALS: BP 165/82
[2025-01-19] MEDS: PROZAC 20 MG PO (09:44)
[2025-01-19] MEDS: PROTONIX 40 MG PO (09:44)
[2025-01-19] MEDS: HEPARIN 5000 UNITS SC ×3 (09:44→23:00)
[2025-01-19] MEDS: NEURONTIN 400 MG PO ×3 (09:44→22:59)
[2025-01-19] MEDS: VITAMIN C 500 MG PO (09:45)
[2025-01-19] MEDS: LIDOCAINE 4% PATCH 1 PATCH TOPICAL (09:45)
--- NOTE | 2025-01-19 10:24 | CM ---
Patient seen bedside, initial assessment completed. Patient is a 84-year-old female with past medical history of GERD, depression, chronic back pain following fall in December will presents to the emergency department after being discharged from the
hospital for similar complaints.
Patient resides alone in a 2STH, bedroom and bathroom located on the first floor. Patient is independent w/ RW, cane, has crutches. Independent w/ ADLs. No SNF hx, current w/ [facility].
Address, point of contact and insurance verified
PCP: Alesha Schaffer
Pharmacy: [facility] [place]
Patient admitted obs status. DEL RIO form verbally reviewed, copy provided, copy on chart
Plan: Anticipate home, [place] w/ [facility]
--- NOTE | 2025-01-19 10:44 | PTCARENOTE ---
pt groggy oriented to self and place at times. weak one person assist to bathroom.
--- NOTE | 2025-01-19 13:49 | W.PN.HOSP.TC ---
Today's Communication/Plan
-
avoid sedatives
MR Spine
PT/OT
Assessment / Plan
Assessment / Plan
Physical Exam
General: Well Developed, Well Nourished and No Apparent Distress
HEENT: NormoCephalic, Moist mucous membranes and Atraumatic
Respiratory: Clear
Cardiac: S1/S2 and Regular Rhythm; No Murmur or Rub
GI: Soft, Non Tender, Non Distended and Normal Bowel Sounds; No Organomegaly
Rectal: Deferred by Provider
Musculoskeletal: No Clubbing, No Cyanosis and No Edema
Skin: No Rash
Neuro: Nonfocal/grossly intact
Patient was just admitted for chronic intractable back pain radiating to the right abdomen that was felt to be musculoskeletal. She was started on lidocaine patch and Flexeril with improvement and then discharged to home after being observed for 2
days. Patient unable to manage at home due to pain and is basically coming in for ambulatory dysfunction.
PLAN:
Chronic back pain and ambulatory dysfunction:
- admit to med/surg obs
- continue pain management with tylenol, toradol and gabapentin
- will hold off on flexeril for now, avoid sedatives
- continue lidocaine patch
- pt eval when pain beter control for possible STR
- outpatient ortho/spine eval
- MR Spine
#Lethargy
-avoid sedatives
-F/u UA
DVT prophylaxis�heparin sq
Full code
Total time spent on today's encounter was 51 minutes which included time spent in counseling the patient/family regarding diagnosis and treatment plan as listed above, goals of care, and symptom management. Case was discussed with nursing staff,
specialists, and care coordinators/case management. All labs and imaging personally reviewed by me. Remainder the time spent in detailed review of previous records, lab data, imaging, and other medical provider documentation.
Anticipated Discharge: Within 24 hours
Subjective/Interval History
-
Date of Service: January 19, 2025
lethargic today
Objective Data
-
Vital Signs:
Vital Signs
Temp Pulse Resp BP Pulse Ox
98.9 F 71 18 165/82 94
01/19/25 07:09 01/19/25 07:09 01/19/25 07:09 01/19/25 07:09 01/19/25 07:09
Review of Systems
-
History Source: Patient
All other systems: Not reviewed unless documented
Data Reviewed
-
CT Scan: Report Reviewed by me
Labs: Labs Reviewed by me
[2025-01-19 15:07] VITALS: BP 143/64
[2025-01-19 16:51] LABS: Urine Character Clear (Clear)
[2025-01-19 16:59] LABS: Urine Squamous Cell 16-20 /LPF (Few)
[2025-01-19 17:00] LABS: Urine Red Blood Cell 0-2 /HPF (0-2)
[2025-01-19] MEDS: REMERON 30 MG PO (22:59)
[2025-01-19 23:21] VITALS: BP 149/79
[2025-01-20 06:59] VITALS: BP 166/86
[2025-01-20] MEDS: LIDOCAINE 4% PATCH 1 PATCH TOPICAL (07:58)
[2025-01-20] MEDS: HEPARIN 5000 UNITS SC ×3 (07:59→23:09)
[2025-01-20] MEDS: PROZAC 20 MG PO (08:00)
[2025-01-20] MEDS: PROTONIX 40 MG PO (08:00)
[2025-01-20] MEDS: VITAMIN C 500 MG PO (08:00)
[2025-01-20] MEDS: NEURONTIN 400 MG PO ×3 (08:01→21:02)
[2025-01-20] MEDS: TORADOL 10 MG IV (08:18)
[2025-01-20 09:08] LABS: Hematocrit 41.7 % (37.0-47.0); Hemoglobin 14.2 g/dL (12.0-16.0); Mean Corp Hgb Conc. 34.1 g/dL (33.0-37.0); Mean Corpuscular Volume 92.7 fL (81.0-99.0); Platelet Count 579 10^3/uL (130-400); Red Cell Dist. Width 12.2 % (11.5-14.5)
[2025-01-20 09:45] LABS: ALT (SGPT) 25 U/L (0-35); AST (SGOT) 19 U/L (14-36); Albumin 3.7 g/dl (3.5-5.0); Alkaline Phosphatase 76 U/L (38-126); Blood Urea Nitrogen 12 mg/dl (7-17); Calcium 9.3 mg/dl (8.4-10.2); Carbon Dioxide 20 mmol/L (22-30); Chloride 105 mmol/L (98-107); Estimated Creatinine Clearance 46 ml/min; Glucose 80 mg/dl (70-99); Potassium 4.3 mmol/L (3.5-5.1); Sodium 136 mmol/L (135-145); Total Protein 5.9 g/dl (6.3-8.2); eGFR > 60.00
--- NOTE | 2025-01-20 11:26 | W.PN.HOSP.TC ---
Today's Communication/Plan
-
see PN
Assessment / Plan
Assessment / Plan
84yo F with PMHX of chronic back pain s/p injections in the past, neuropathy, anxiety, GERD, insomnia, had twisted her back on 12/24/24, but initially without any symptoms, in 2 weeks woke up with severe lower back pain. MRI with multilevel DJD, no
significant spinal canal stenosis. Chronic compression deformities of T7, L1, L2, L3 and L5. Accidental findings of appendicolith without inflammatory changes on CT abd.
A/P:
#Chronic compression deformities of T7, L1, L2, L3 and L5
#DJD
Pain mgmt
trial of steroids
PT/OT
#Appendicolith
no concern for inflammation on CT
#Lethargy on admission
UA positive for infection, however resolved off Abx
most likely asymptomatic bacteriuria
#anxiety
#GERD
#Neuropathy
cont home meds
DVT ppx hep
Full code
I have spent at least 55min reviewing chart, test results, communication with family and providing direct patient care
Anticipated Discharge: > 48 hours
Subjective/Interval History
-
Date of Service: January 20, 2025
Objective Data
-
Labs:
Laboratory Results
01/20/25
08:24
WBC 12.0 H
Hgb 14.2
Hct 41.7
Plt Count 579 H
Sodium 136
Potassium 4.3
Chloride 105
Carbon Dioxide 20 L
BUN 12
Creatinine 0.7
Glucose 80
Calcium 9.3
Total Bilirubin 0.5
AST 19
ALT 25
Alkaline Phosphatase 76
Vital Signs:
Vital Signs
Temp Pulse Resp BP Pulse Ox
97.8 F 64 16 166/86 95
01/20/25 06:59 08/18/25 06:59 01/20/25 06:59 01/20/25 06:59 01/20/25 08:00
I&O
01/19/25 01/20/25 01/21/25
06:59 06:59 06:59
Intake Total 600 / 600
Balance 600 / 600
Review of Systems
-
History Source: Patient
Musculoskeletal: Reports Other (lower back pain)
Physical Exam
-
General: Well Developed
HEENT: Normocephalic
Respiratory: Clear to Auscultation
Cardiac: Regular Rhythm
Musculoskeletal: No Clubbing, No Cyanosis and No Edema
Neuro: Awake, Alert, Oriented and AO x 3
Psych: Calm
[2025-01-20] MEDS: DELTASONE 30 MG PO (11:39)
[2025-01-20] MEDS: ROXICODONE 5 MG PO (11:40)
--- NOTE | 2025-01-20 13:05 | CM ---
Spoke with patient, sister and niece.
Sister upset patient is observation status. Reviewed observation status with sister.
PT/OT evals pending.
Family would like skilled vs acute rehab.
Patient does qualify for [facility] program, reviewed options with Sandra. Will send referrals once PT/OT evals completed.
Plan: inpatient vs outpatient therapy depending on evals.
[2025-01-20 13:29] VITALS: BP 135/76; BP 141/73; PULSE 63; O2SAT 94
[2025-01-20 15:01] VITALS: BP 133/75
[2025-01-20] MEDS: REMERON 30 MG PO (21:04)
[2025-01-20 23:55] VITALS: BP 123/60
[2025-01-21 07:52] LABS: Hematocrit 41.2 % (37.0-47.0); Hemoglobin 14.0 g/dL (12.0-16.0); Mean Corp Hgb Conc. 34.0 g/dL (33.0-37.0); Mean Corpuscular Volume 90.4 fL (81.0-99.0); Nucleated Red Blood Cells % 0 %; Platelet Count 516 10^3/uL (130-400); Red Cell Dist. Width 12.2 % (11.5-14.5)
[2025-01-21 07:53] VITALS: BP 153/76
[2025-01-21] MEDS: LIDOCAINE 4% PATCH 1 PATCH TOPICAL (08:26)
[2025-01-21] MEDS: DELTASONE 30 MG PO (08:27)
[2025-01-21] MEDS: PROTONIX 40 MG PO (08:27)
[2025-01-21] MEDS: NEURONTIN 400 MG PO ×3 (08:28→21:14)
[2025-01-21] MEDS: VITAMIN C 500 MG PO (08:28)
[2025-01-21] MEDS: HEPARIN 5000 UNITS SC ×3 (08:28→23:06)
[2025-01-21] MEDS: PROZAC 20 MG PO (08:28)
[2025-01-21] MEDS: SENOKOT-S 1 TABLET PO (08:29)
[2025-01-21] MEDS: ROXICODONE 5 MG PO (08:31)
[2025-01-21 08:33] LABS: ALT (SGPT) 20 U/L (0-35); AST (SGOT) 19 U/L (14-36); Albumin 3.7 g/dl (3.5-5.0); Alkaline Phosphatase 69 U/L (38-126); Blood Urea Nitrogen 16 mg/dl (7-17); Calcium 9.7 mg/dl (8.4-10.2); Carbon Dioxide 18 mmol/L (22-30); Chloride 108 mmol/L (98-107); Estimated Creatinine Clearance 46 ml/min; Glucose 86 mg/dl (70-99); Potassium 4.6 mmol/L (3.5-5.1); Sodium 136 mmol/L (135-145); Total Protein 6.0 g/dl (6.3-8.2); eGFR > 60.00
--- NOTE | 2025-01-21 09:54 | PHA.VAN.IN ---
Addendum entered and electronically signed by Deepa Snow [facility] 01/21/25 10:18:
Agree with assessment and plan
Original Note:
Assessment
- Assessment
Renal Function: Appears similar to baseline
AUC Dosing Plan
- Dosing Variables
Dosing Weight (kg): 58.542
Dosing CrCl (ml/min): 46
Vd coefficient (L/kg): 0.7
- Empiric Dosing
Initial / Loading Dose: to receive 1500mg load now
Maintenance Regimen: 750mg q24h
Estimated AUC (mcg*h/mL): 439
Estimated Peak (mcg*h/mL): 28.6
Estimated Trough (mcg/ml): 10.7
Estimated Half Life (H): 16.3
Plan
- Plan
Monitoring: consider within next few days
Pharmacokinetics Vancomycin I
- -
Patient Age: 84
Patient Sex: Female
Vancomycin Day #: 1
Indication: Genito-Urinary Tract
Requesting Provider: Dr. Mckeon
Pertinent Antimicrobial Allergies:
penicillins - hives; unknown onset
Height / Weight:
Height 5 ft 1 in
Actual Weight 58.542 kg
- Vital Signs / Lab Results
Temp Pulse Resp BP Pulse Ox
98.2 F 65 18 153/76 99
01/21/25 07:53 01/21/25 07:53 01/21/25 07:53 01/21/25 07:53 01/21/25 07:53
Lab Results - Hematology
01/20/25 01/21/25
08:24 07:24
WBC 12.0 H 16.7 H
Lab Results - Chemistry
01/20/25 01/21/25
08:24 07:24
BUN 12 16
Creatinine 0.7 0.7
Estimated Creat Clear 46 46
Albumin 3.7 3.7
Lab Results - Urine
01/19/25
16:39
Urine Nitrite (Reflex) Negative
Leukocyte Esterase Rfl 2+ A
Urine WBC (Reflex) 6-10
Ur Squamous Epith Cells 16-20
Urine Bacteria (Reflex) Moderate A
Microbiology Results
01/19/25 16:39 Urine Culture - Preliminary
Urine Enterococcus species
[2025-01-21] MEDS: VANCOCIN 530 MG IV (09:57)
--- NOTE | 2025-01-21 10:29 | CM ---
Addendum entered by Demi Pedraza 01/21/25 11:36:
Discussed w/ physician advisor, patient now receiving IV vancomycin, can upgrade to IP
Inpatient admission orders are in
Updated patient's sister, aware that patient needs a 3 night IP stay. CM stated patient can still use the waiver at [facility] if patient is medically stable before the 3 days.
Original Note:
Chart reviewed. Therapy rec SNF at d/c. Family provided SNF list for [facility] waiver as patient remains obs status and qualifies for the waiver.
CM spoke w/ patient 's sister, Sandra, for SNF options. Sandra identified [facility] but is asking if and when patient's LOC would be changed to inpatient. Sandra shared she was informed yesterday that patient does not have a IP medical dx at
this time but would like to speak w/ the physician advisor regarding this. CM TT physician advisor about patient's sister wanting a phone call.
Referral sent to [facility] in [facility]
Plan: SNF; will be using [facility] waiver if remains obs status
[2025-01-21 10:30] VITALS: BP 177/93; PULSE 65; O2SAT 95
--- NOTE | 2025-01-21 10:35 | W.PN.HOSP.TC ---
Today's Communication/Plan
-
pending Ucx
cont pain mgmt
steroids
Assessment / Plan
Assessment / Plan
84yo F with PMHX of chronic back pain s/p injections in the past, neuropathy, anxiety, GERD, insomnia, had twisted her back on 12/24/24, but initially without any symptoms, in 2 weeks woke up with severe lower back pain. MRI with multilevel DJD, no
significant spinal canal stenosis. Chronic compression deformities of T7, L1, L2, L3 and L5. Accidental findings of appendicolith without inflammatory changes on CT abd.
A/P:
#Chronic compression deformities of T7, L1, L2, L3 and L5
#DJD
Pain mgmt: patient reportedly was able to function and ambulate with current pain meds, however still has bouts of shooting pain when turning in the bed. Partially the problem is an expectations from the patient to have pain removed entirely and
immediately. Explained that will target relieve and it might take days.
trial of steroids
PT/OT
#Appendicolith
no concern for inflammation on CT
#Lethargy on admission
#UTI
UA positive for infection, Cx growing enterococcus
Reasonable to treat
#anxiety
#GERD
#Neuropathy
cont home meds
DVT ppx hep
Full code
I have spent at least 51min reviewing chart, test results, communication with family and providing direct patient care
Anticipated Discharge: 24 - 48 hours
Subjective/Interval History
-
Date of Service: January 21, 2025
Objective Data
-
Labs:
Laboratory Results
01/21/25
07:24
WBC 16.7 H
Hgb 14.0
Hct 41.2
Plt Count 516 H
Sodium 136
Potassium 4.6
Chloride 108 H
Carbon Dioxide 18 L
BUN 16
Creatinine 0.7
Glucose 86
Calcium 9.7
Total Bilirubin 0.4
AST 19
ALT 20
Alkaline Phosphatase 69
Vital Signs:
Vital Signs
Temp Pulse Resp BP Pulse Ox
98.2 F 65 18 153/76 99
01/21/25 07:53 01/21/25 07:53 01/21/25 07:53 01/21/25 07:53 01/21/25 07:53
I&O
01/20/25 01/21/25 01/22/25
06:59 06:59 06:59
Intake Total 600 / 600 480 / 480 480 / 480
Balance 600 / 600 480 / 480 480 / 480
Review of Systems
-
History Source: Patient
All other systems: Reviewed and negative
Musculoskeletal: Reports Other (back pain)
[2025-01-21 15:30] VITALS: BP 151/86
[2025-01-21] MEDS: REMERON 30 MG PO (21:14)
[2025-01-21 23:05] VITALS: BP 122/63
--- NOTE | 2025-01-22 03:02 | DOWNTIME ---
There was a [employer] Downtime on 01/22/2025 from 0100 to 01/22/2025 at 0235. Downtime documentation of patient's care, including medication administrations, has been reconciled in the electronic record per guidelines. Refer to the
patient's paper chart under the miscellaneous tab to see printed paper medication records and downtime forms.
[2025-01-22] MEDS: ROXICODONE 5 MG PO ×3 (04:22→21:01)
[2025-01-22] MEDS: VANCOCIN 150 IV (05:02)
[2025-01-22 07:33] LABS: Hematocrit 38.2 % (37.0-47.0); Hemoglobin 12.8 g/dL (12.0-16.0); Mean Corp Hgb Conc. 33.5 g/dL (33.0-37.0); Mean Corpuscular Volume 92.5 fL (81.0-99.0); Nucleated Red Blood Cells % 0 %; Platelet Count 544 10^3/uL (130-400); Red Cell Dist. Width 12.6 % (11.5-14.5)
[2025-01-22 07:45] VITALS: BP 159/78
[2025-01-22 07:56] LABS: ALT (SGPT) 18 U/L (0-35); AST (SGOT) 14 U/L (14-36); Albumin 3.2 g/dl (3.5-5.0); Alkaline Phosphatase 70 U/L (38-126); Blood Urea Nitrogen 17 mg/dl (7-17); Calcium 9.7 mg/dl (8.4-10.2); Carbon Dioxide 24 mmol/L (22-30); Chloride 110 mmol/L (98-107); Estimated Creatinine Clearance 46 ml/min; Glucose 92 mg/dl (70-99); Potassium 4.1 mmol/L (3.5-5.1); Sodium 139 mmol/L (135-145); Total Protein 5.4 g/dl (6.3-8.2); eGFR > 60.00
[2025-01-22 07:57] VITALS: BP 159/78
[2025-01-22] MEDS: PROTONIX 40 MG PO (10:07)
[2025-01-22] MEDS: LIDOCAINE 4% PATCH 1 PATCH TOPICAL (10:07)
--- NOTE | 2025-01-22 10:07 | W.PN.HOSP.TC ---
Today's Communication/Plan
-
cont Abx
Assessment / Plan
Assessment / Plan
84yo F with PMHX of chronic back pain s/p injections in the past, neuropathy, anxiety, GERD, insomnia, had twisted her back on 12/24/24, but initially without any symptoms, in 2 weeks woke up with severe lower back pain. MRI with multilevel DJD, no
significant spinal canal stenosis. Chronic compression deformities of T7, L1, L2, L3 and L5. Accidental findings of appendicolith without inflammatory changes on CT abd.
A/P:
#Chronic compression deformities of T7, L1, L2, L3 and L5
#DJD
Pain mgmt: patient reportedly was able to function and ambulate with current pain meds, however still has bouts of shooting pain when turning in the bed. Partially the problem is an expectations from the patient to have pain removed entirely and
immediately. Explained that will target relieve and it might take days.
trial of steroids
PT/OT
#Appendicolith
no concern for inflammation on CT
#Lethargy on admission
#UTI
UA positive for infection, Cx growing enterococcus
Reasonable to treat
Vanco pending Ucx
#Thrombocytosis
suspect reactive
follow CBC
#anxiety
#GERD
#Neuropathy
cont home meds
DVT ppx hep
Full code
I have spent at least 51min reviewing chart, test results, communication with family and providing direct patient care
Anticipated Discharge: > 48 hours
Subjective/Interval History
-
Date of Service: January 22, 2025
Objective Data
-
Labs:
Laboratory Results
01/22/25
07:09
WBC 15.7 H
Hgb 12.8
Hct 38.2
Plt Count 544 H
Sodium 139
Potassium 4.1
Chloride 110 H
Carbon Dioxide 24
BUN 17
Creatinine 0.7
Glucose 92
Calcium 9.7
Total Bilirubin 0.3
AST 14
ALT 18
Alkaline Phosphatase 70
Vital Signs:
Vital Signs
Temp Pulse Resp BP Pulse Ox
97.6 F 54 16 159/78 94
01/22/25 07:45 01/22/25 07:45 01/22/25 07:45 01/22/25 07:45 01/22/25 07:45
I&O
01/21/25 01/22/25 01/23/25
06:59 06:59 06:59
Intake Total 480 / 480 1934
Balance 480 / 480 1934
Review of Systems
-
History Source: Patient
All other systems: Reviewed and negative
Physical Exam
-
General: Comfortable
Neuro: Awake
Psych: Calm
[2025-01-22] MEDS: PROZAC 20 MG PO (10:08)
[2025-01-22] MEDS: VITAMIN C 500 MG PO (10:08)
[2025-01-22] MEDS: NEURONTIN 400 MG PO ×3 (10:08→20:54)
[2025-01-22] MEDS: DELTASONE 30 MG PO (10:08)
[2025-01-22] MEDS: HEPARIN 5000 UNITS SC ×3 (10:09→23:45)
[2025-01-22 10:40] VITALS: BP 156/94; PULSE 69
[2025-01-22] MEDS: MACROBID 100 MG PO ×2 (13:10→20:44)
[2025-01-22 15:33] VITALS: BP 123/63
[2025-01-22] MEDS: REMERON 30 MG PO (20:53)
[2025-01-22 23:45] VITALS: BP 133/73
[2025-01-23 07:27] LABS: Hematocrit 39.9 % (37.0-47.0); Hemoglobin 13.4 g/dL (12.0-16.0); Mean Corp Hgb Conc. 33.6 g/dL (33.0-37.0); Mean Corpuscular Volume 93.0 fL (81.0-99.0); Nucleated Red Blood Cells % 0 %; Platelet Count 554 10^3/uL (130-400); Red Cell Dist. Width 12.6 % (11.5-14.5)
[2025-01-23] MEDS: ROXICODONE 5 MG PO ×3 (07:42→22:25)
[2025-01-23] MEDS: NEURONTIN 400 MG PO ×3 (07:43→22:25)
[2025-01-23] MEDS: VITAMIN C 500 MG PO (07:43)
[2025-01-23] MEDS: HEPARIN 5000 UNITS SC ×2 (07:43→16:32)
[2025-01-23] MEDS: PROZAC 20 MG PO (07:43)
[2025-01-23] MEDS: MACROBID 100 MG PO ×2 (07:43→19:28)
[2025-01-23] MEDS: DELTASONE 30 MG PO (07:43)
[2025-01-23] MEDS: PROTONIX 40 MG PO (07:43)
[2025-01-23] MEDS: LIDOCAINE 4% PATCH 1 PATCH TOPICAL (07:44)
[2025-01-23 07:49] VITALS: BP 172/82
[2025-01-23 08:06] LABS: ALT (SGPT) 19 U/L (0-35); AST (SGOT) 15 U/L (14-36); Albumin 3.4 g/dl (3.5-5.0); Alkaline Phosphatase 78 U/L (38-126); Blood Urea Nitrogen 17 mg/dl (7-17); Calcium 9.9 mg/dl (8.4-10.2); Carbon Dioxide 22 mmol/L (22-30); Chloride 112 mmol/L (98-107); Estimated Creatinine Clearance 40 ml/min; Glucose 90 mg/dl (70-99); Potassium 4.0 mmol/L (3.5-5.1); Sodium 139 mmol/L (135-145); Total Protein 5.6 g/dl (6.3-8.2); eGFR > 60.00
--- NOTE | 2025-01-23 10:50 | CM ---
Addendum entered by Demi Pedraza 01/23/25 16:08:
Received call from Jose Luis, confirmed patient is eligible for waiver, however, attending hospitalist is not a [facility] provider. Patient's PCP was suggested in this case, however, PCP is not a ACO provider neither. Patient will need to be evaluated by a
ACO provider in order to use the Medicare waiver for SNF.
Updated [facility] admissions
Addendum entered by Demi Pedraza 01/23/25 14:31:
[facility] accepted. Sandra agreeable.
Called Jose Luis/[facility]abe[facility] [phone] regarding SNF medicare waiver. Will call CM back once confirmed if patient is eligible for the waiver
Addendum entered by Demi Pedraza 01/23/25 13:35:
Spoke w/ Sandra, reviewed other SNF facilities. Referrals sent to [facility], [facility] and [facility]
Original Note:
Per hospitalist, patient is medically stable for d/c.
[facility] SNF, has no bed availability through next week
CM left message w/ patient's sister, Sandra, to discuss referring to other [facility] waiver accepted facilities
--- NOTE | 2025-01-23 11:57 | W.PN.HOSP.TC ---
Addendum entered and electronically signed by Duke Mckeon MD 01/23/25 14:07:
PT/OT recommends rehab
Original Note:
Today's Communication/Plan
-
medically stable for STR - CM aware and looking for bed
Assessment / Plan
Assessment / Plan
84yo F with PMHX of chronic back pain s/p injections in the past, neuropathy, anxiety, GERD, insomnia, had twisted her back on 12/24/24, but initially without any symptoms, in 2 weeks woke up with severe lower back pain. MRI with multilevel DJD, no
significant spinal canal stenosis. Chronic compression deformities of T7, L1, L2, L3 and L5. Accidental findings of appendicolith without inflammatory changes on CT abd. Pain improved, patient able to ambulate and Ucx resuted with E.faecalis
sensitive to nitrofurantoin. Medcially stable to be d/c to rehab
A/P:
#Chronic compression deformities of T7, L1, L2, L3 and L5
#DJD
Pain mgmt: patient reportedly was able to function and ambulate with current pain meds, however still has bouts of shooting pain when turning in the bed. Partially the problem is an expectations from the patient to have pain removed entirely and
immediately. Explained that will target relieve and it might take days.
trial of steroids
PT/OT
#Appendicolith
no concern for inflammation on CT
#Lethargy on admission
#UTI
UA positive for infection, Cx growing enterococcus
Reasonable to treat
Nitrofurantoin as per Ucx
#Thrombocytosis
suspect reactive
follow CBC
#anxiety
#GERD
#Neuropathy
cont home meds
DVT ppx hep
Full code
I have spent at least 36min reviewing chart, test results, communication with family and providing direct patient care
Anticipated Discharge: Within 24 hours
Subjective/Interval History
-
Date of Service: January 23, 2025
Objective Data
-
Labs:
Laboratory Results
01/23/25
07:06
WBC 15.2 H
Hgb 13.4
Hct 39.9
Plt Count 554 H
Sodium 139
Potassium 4.0
Chloride 112 H
Carbon Dioxide 22
BUN 17
Creatinine 0.8
Glucose 90
Calcium 9.9
Total Bilirubin 0.4
AST 15
ALT 19
Alkaline Phosphatase 78
Vital Signs:
Vital Signs
Temp Pulse Resp BP Pulse Ox
98.1 F 58 16 172/82 94
01/23/25 07:49 01/23/25 07:49 01/23/25 07:49 01/23/25 07:49 01/23/25 07:49
I&O
01/22/25 01/23/25 01/24/25
06:59 06:59 06:59
Intake Total 1934 480 / 480
Balance 1934 480 / 480
Review of Systems
-
History Source: Patient
Physical Exam
-
General: No Apparent Distress
HEENT: Normocephalic
Respiratory: Clear to Auscultation
GI: Soft, Nontender and Nondistended
Musculoskeletal: No Clubbing, No Cyanosis and No Edema
Neuro: Awake, Alert, Oriented and AO x 3
Psych: Calm
[2025-01-23 15:26] VITALS: BP 133/71; PULSE 77; O2SAT 94
[2025-01-23 15:52] VITALS: BP 137/82
[2025-01-23] MEDS: REMERON 30 MG PO (22:25)
[2025-01-23 23:51] VITALS: BP 116/64
[2025-01-24] MEDS: HEPARIN 5000 UNITS SC ×2 (00:15→07:21)
[2025-01-24] MEDS: MACROBID 100 MG PO ×2 (07:21→20:35)
[2025-01-24] MEDS: PROTONIX 40 MG PO (07:21)
[2025-01-24] MEDS: NEURONTIN 400 MG PO ×3 (07:21→21:08)
[2025-01-24] MEDS: VITAMIN C 500 MG PO (07:21)
[2025-01-24] MEDS: LIDOCAINE 4% PATCH 1 PATCH TOPICAL (07:21)
[2025-01-24] MEDS: PROZAC 20 MG PO (07:21)
[2025-01-24] MEDS: DELTASONE 30 MG PO (07:21)
[2025-01-24 07:34] VITALS: BP 155/71
[2025-01-24 09:50] VITALS: BP 181/100; BP 182/96; PULSE 70; O2SAT 94
--- NOTE | 2025-01-24 09:53 | W.PN.HOSP.TC ---
Addendum entered and electronically signed by Duke Mckeon MD 01/24/25 11:50:
Please dont use billing under this note, use Update note billing instead
Original Note:
Today's Communication/Plan
-
chest XR, BNP
Assessment / Plan
Assessment / Plan
84yo F with PMHX of chronic back pain s/p injections in the past, neuropathy, anxiety, GERD, insomnia, had twisted her back on 12/24/24, but initially without any symptoms, in 2 weeks woke up with severe lower back pain. MRI with multilevel DJD, no
significant spinal canal stenosis. Chronic compression deformities of T7, L1, L2, L3 and L5. Accidental findings of appendicolith without inflammatory changes on CT abd. Pain improved, patient able to ambulate and Ucx resulted with E.faecalis
sensitive to nitrofurantoin. Developed hypoxia on 01/24/25
A/P:
#Acute respiratory hypoxic failure
started on O2 on 01/24/25 with exertional hypoxia
check CHest XR, BNP
#Chronic compression deformities of T7, L1, L2, L3 and L5
#DJD
Pain mgmt: patient reportedly was able to function and ambulate with current pain meds, however still has bouts of shooting pain when turning in the bed. Partially the problem is an expectations from the patient to have pain removed entirely and
immediately. Explained that will target relieve and it might take days.
trial of steroids
PT/OT
#Appendicolith
no concern for inflammation on CT
#Lethargy on admission
#UTI
UA positive for infection, Cx growing enterococcus
Reasonable to treat
Nitrofurantoin as per Ucx
#Thrombocytosis
suspect reactive
follow CBC
#anxiety
#GERD
#Neuropathy
cont home meds
DVT ppx hep
Full code
I have spent at least 51min reviewing chart, test results, communication with family and providing direct patient care
Anticipated Discharge: 24 - 48 hours
Subjective/Interval History
-
Date of Service: January 24, 2025
Objective Data
-
Labs:
Laboratory Results
01/24/25
09:49
WBC Pending
Hgb Pending
Hct Pending
Plt Count Pending
Sodium Pending
Potassium Pending
Chloride Pending
Carbon Dioxide Pending
BUN Pending
Creatinine Pending
Glucose Pending
Calcium Pending
Total Bilirubin Pending
AST Pending
ALT Pending
Alkaline Phosphatase Pending
Vital Signs:
Vital Signs
Temp Pulse Resp BP Pulse Ox
97.6 F 64 18 155/71 94
01/24/25 07:34 01/24/25 07:34 01/24/25 07:34 01/24/25 07:34 01/24/25 07:34
I&O
01/23/25 01/24/25 01/25/25
06:59 06:59 06:59
Intake Total 480 / 480 480 / 480
Balance 480 / 480 480 / 480
Review of Systems
-
History Source: Patient
All other systems: Reviewed and negative
Respiratory: Reports Trouble Breathing
Physical Exam
-
General: No Apparent Distress
HEENT: Normocephalic
Respiratory: Clear to Auscultation
GI: Soft, Nontender and Nondistended
Musculoskeletal: No Clubbing, No Cyanosis and No Edema
Neuro: Awake, Alert, Oriented and AO x 3
Psych: Calm and Apparent Dementia
[2025-01-24 10:00] VITALS: BP 182/96
--- NOTE | 2025-01-24 10:04 | CM ---
Addendum entered by Demi Pedraza 01/24/25 11:20:
Per hospitalist, will keep patient today. Will re-assess over the weekend
Original Note:
Patient has 3 night IP stay and is able to admit to SNF without waiver today. [facility] can still accept today
Per hospitalist, further work up at this time due to patient developing hypoxia, will let CM know if patient is able to still d/c today
Updated [facility] admissions
Updated patient's daughter, Sandra. Will be at the hospital shortly for updates, agreeable for patient to d/c if doctor clears her today
Plan: [facility] SNF
--- NOTE | 2025-01-24 10:13 | PTCARENOTE ---
Patient was ambulating in [place] with PT when she stated that she felt weak and 'something was off'. PT assisted patient back to room and into bed. SpO2 noted to be 82% and PT notified nursing staff at that time. Patient placed on 3L nasal cannula and
eventually recovered to 94% . BP 182/96. Lungs diminished at L base and some fine crackles note to L mid. R side clear. Hospitalist notified. 2 view CXR ordered. Labs drawn and sent. Results pending at this time. Pt reports improved breathing but
still general feeling of weakness. Pt resting in bed, call joseph in reach.
[2025-01-24 10:27] LABS: Hematocrit 44.3 % (37.0-47.0); Hemoglobin 14.8 g/dL (12.0-16.0); Mean Corp Hgb Conc. 33.4 g/dL (33.0-37.0); Mean Corpuscular Volume 93.1 fL (81.0-99.0); Platelet Count 463 10^3/uL (130-400); Red Cell Dist. Width 13.0 % (11.5-14.5)
[2025-01-24 10:32] LABS: ALT (SGPT) 35 U/L (0-35); AST (SGOT) 29 U/L (14-36); Albumin 3.9 g/dl (3.5-5.0); Alkaline Phosphatase 88 U/L (38-126); Blood Urea Nitrogen 16 mg/dl (7-17); Calcium 10.2 mg/dl (8.4-10.2); Carbon Dioxide 22 mmol/L (22-30); Chloride 108 mmol/L (98-107); Estimated Creatinine Clearance 46 ml/min; Glucose 104 mg/dl (70-99); Potassium 3.7 mmol/L (3.5-5.1); Sodium 140 mmol/L (135-145); Total Protein 6.3 g/dl (6.3-8.2); eGFR > 60.00
[2025-01-24 10:47] LABS: Nucleated Red Blood Cells % 0.2 %
[2025-01-24] MEDS: LASIX 40 MG IV (11:22)
[2025-01-24 11:28] LABS: COVID-19 Antigen Negative (Negative)
--- NOTE | 2025-01-24 11:45 | W.PN.UPDATE ---
Addendum entered and electronically signed by Duke Mckeon MD 01/24/25 13:10:
Elevated troponin with TWI in lateral leads on EKG - ASA, cont O2, heparin drip, serial EKG and trops. Will treat as NSTEMI until R/O - card consult
Check DDimer
Original Note:
Update Note
Progress Note Update
Developed SOB with dizziness and hypoxia during PT/OT, no chest pain.
Labs showing leukocytosis, but with recent Prednisone, no fevers and no cough - highly doubt pneumonia
Prelim on XR - prominent vasculature, but proBNP low in 110
Auscultation: no wheezing, but LLL crackles heard. Trace b/l LE edema. Attempt Lasix. Schedule Echo
cont to monitor fever curve and WBC count
EKG and trops
[2025-01-24 13:00] LABS: Troponin I 0.153 ng/ml
[2025-01-24] MEDS: ASPIRIN 325 MG PO (13:29)
[2025-01-24] MEDS: HEPARIN 3500 UNITS IV (13:29)
[2025-01-24] MEDS: HEPARIN 25000 UNITS/250 ML IV ×2 (13:31→18:41)
[2025-01-24 13:37] LABS: APTT 27.9 Sec (23.4-35.0)
--- NOTE | 2025-01-24 13:37 | CON.CAR ---
Addendum entered and electronically signed by Hubert Dial MD 01/24/25 18:11:
I saw and examined the patient.
The Alcoholic Counselor's note was reviewed and I agree with the note.
Comment:
GEN: No distress, awake, Ox3
HEENT: supple, anicteric, mmm
LUNGS: CTA, no wheezes/rales
CV: Reg, S1/S2, 1/6 syst LSB, no gallop
ABD: soft, BS+, NT/ND
EXT: No edema
NEURO: Gross non-focal
SKIN: No rash
PLan:
84-year-old female with past medical history of depression/hiatal hernia presented to [facility] with acute on chronic lower back pain and confusion. She has a known history of degenerative back disease requiring steroid injections and
radiculopathy. She was also found to have a urinary tract infection. Today while in physical therapy she had an episode of marked shortness of breath and fatigue. She was found to be hypoxic with an oxygen level of 83% on room air. We were asked
to evaluate her for possible cardiac cause of shortness of breath.
EKG revealed sinus rhythm with nonspecific ST abnormality. Cardiac troponin was abnormal at 0.15. D-dimer was abnormal at 3.
Echocardiogram reveals EF of 55 to 60% with dilated right ventricle and RV hypokinesis. PA pressure was in the 40s.
CT scan of the chest reveals bilateral pulmonary emboli with evidence of right heart strain.
I suspect her symptoms are from pulmonary embolism. Agree with IV heparin. Will discuss case with pulmonary regarding further management of right-sided heart strain however she is hemodynamically stable with a stable blood pressure.
She does have some borderline sinus tachycardia which is likely due to her pulmonary embolism.
Continue IV heparin and likely add Eliquis with PE dosing.
She is currently comfortable denying any dyspnea.
Continue Macrobid for UTI.
Addendum entered and electronically signed by Lisy Healy PA-C 01/24/25 15:08:
Of note D-dimer elevated at 3.62. CT of chest has been ordered
Original Note:
Consultation
Consultation Request
Date/Time Consultation Requested: 01/24/2025
Date/Time Consultation Performed: 01/24/2025
Requesting Provider: Dr. Mckeon
Performing Provider: Lisy Healy PA-C for Dr. Dial
Reason for Consultation: Dyspnea on exertion, abnormal troponin
Medical History
-
History of Present Illness:
Patient is an 84-year-old female with past medical history significant for chronic back pain with multiple steroid injections, degenerative disc disease, herniated disc of lumbar spine, vertebral compression fractures, radiculopathy, hiatal
hernia/Tate's of Esophagus, depression who presented to emergency department 01/18/2025 with complaints of ongoing intractable low back pain and some mild confusion. She was also found to have E.faecalis UTI sensitive to nitrofurantoin. MRIs
reveal old compression fractures but no new acute fractures on the morning of 01/24/2025 patient was working with physical therapy when she complained of feeling 'not well and weak 'and felt short of breath. She denied chest pain.. Patient was
placed back in bed and found to be hypoxic with SpO2 of 83% on room air. Oxygen improved with supplemental O2. proBNP was added to morning labs which was unremarkable at 110. Chest x-ray currently pending. Initial troponin 0.153. With T wave
inversion in lateral leads.
EKG demonstrated sinus rhythm with nonspecific ST-T wave abnormality. Patient was given 40 mg of IV Lasix as well as aspirin 325 mg. Patient now on heparin drip following bolus. Cardiology being asked to see patient given hypoxia and abnormal
troponin.
At time of this evaluation pt lying comfortably in bed denies CP, SOB at rest, orthopnea/PND but did seem dyspneic with prolonged conversation. Patient denies prior cardiac history. She reports she lives independently and does her own cooking
cleaning and can go up and down a flight of steps previously without chest pain or shortness of breath. She reports this is the first time she is ever felt this way
PMH:
Chronic back pain status post multiple steroid injections
DJD
Radiculopathy
Vertebral compression fractures
Herniated disc of lumbar spine
Vascular ectasias of gastric antrum
Benign gastric polyps (hyperplastic and fundic gland)
Tate's esophagus
Hiatal hernia
Depression
Cholelithiasis
Bilat. cataracts
Colon polyps
Osteopenia
Past Medical History
Past Medical History: Other (See HPI)
Past Surgical History: Gynecological (MOI with BSO) and Other (Steroid injections of back, cataract extraction)
Social History
Tobacco: Non-Smoker
Alcohol: None
Drug: None
Personal:
Living: Alone
Family History
Family History: Cancer (Father had bladder cancer mother had breast cancer)
Allergies / Home Medications
Allergy/AdvReac Type Severity Reaction Status Date / Time
Penicillins Allergy Hives Verified 01/15/25 13:13
�Medication �Instructions �Recorded �Confirmed �Type
ascorbic acid (vitamin C) 500 mg 500 mg PO DAILY Supplement 01/17/25 01/19/25 History
tablet (Vitamin C)
fluoxetine 20 mg capsule 20 mg PO DAILY Depression 01/17/25 01/19/25 History
gabapentin 400 mg tablet 400 mg PO TID Neurological 01/17/25 01/19/25 History
Condition
mirtazapine 30 mg tablet 30 mg PO HS Depression 01/17/25 01/19/25 History
omeprazole 20 mg tablet,delayed 20 mg PO DAILY Gastrointestinal 01/17/25 01/19/25 History
release Issue
lidocaine 4 % topical patch 1 patch topical DAILY back pain 01/19/25 01/19/25 History
therapeutic multivitamin 1 tab PO DAILY Supplement 01/19/25 01/19/25 History
acetaminophen 325 mg tablet 650 mg (2 x 325 mg) PO Q4HPRN PRN 01/23/25 Rx
mild pain/PATEL/temp> 100.4F #90 tabs
lidocaine 4 % topical patch 1 patch topical DAILY lower back 01/23/25 Rx
pain #30 ea
nitrofurantoin 100 mg PO BID #11 caps 01/23/25 Rx
monohydrate/macrocrystals 100 mg
capsule
oxycodone 5 mg tablet 5 mg PO Q8HPRN PRN moderate-severe 01/23/25 Rx
pain #4 tabs
polyethylene glycol 3350 17 gram 17 g PO DAILYPRN PRN constipation 01/23/25 Rx
oral powder packet #30 ea
Review of Systems
-
History Source: Patient
All other systems: Negative unless noted
Physical Exam
Vital Signs
Temp Pulse Resp BP Pulse Ox
97.6 F 95 18 129/79 94
01/24/25 07:34 01/24/25 11:22 01/24/25 07:34 01/24/25 11:22 01/24/25 10:27
GEN: No distress, awake, Ox3, lying in bed
HEENT: supple, anicteric, mmm
LUNGS: faint crackles at bases otherwise CTA, no wheezes/rales, nasal canula in place but O2 turned off
CV: distant heart tones, Reg, S1/S2, no murmur, rub or gallop
ABD: soft, BS+, NT/ND
EXT: No edema, clubbing or cyanosis
NEURO: Gross non-focal
SKIN: No rash, warm, dry
Lab Results
01/24/25 10:05
01/24/25 10:05
Troponin I 0.153 ng/ml H* 01/24/25 12:10
Gsd-C-[facility] Pept 110 pg/ml 01/24/25 10:05
Impression / Plan
-
PCP: Alesha Schaffer
Bakelite Molder: None prior to admission, initial consultation Dr. Dial
Impression:
Presented 01/18/2025 with a retractable low back pain and mild confusion
E.faecalis UTI
Acute hypoxic respiratory insufficiency/FRITZ
Abnormal troponin
Chronic back pain status post multiple steroid injections
DJD
Radiculopathy
Vertebral compression fractures
Herniated disc of lumbar spine
Vascular ectasias of gastric antrum
Benign gastric polyps (hyperplastic and fundic gland)
Tate's esophagus
Hiatal hernia
Depression
Cholelithiasis
Bilat. cataracts
Colon polyps
Osteopenia
Echo 01/24/2025: Ordered
Plan:
- Presented 01/18/2025 with a retractable low back pain and mild confusion. Found to have chronic compression deformities of T7, L1, L2, L3 and L5. Provided steroids and pain medication.
- Patient developed weakness and acute dyspnea while working with PT on 01/24/2025. She was found to be hypoxic with SpO2 83% on room air. She was returned to bed symptoms and oxygenation improved with supplemental oxygen
- Abnormal troponin, initial 0.153 raising concern for NSTEMI. Continue to monitor and trend troponins.
- Monitor on tele
- EKG shows sinus rhythm with nonspecific ST-T wave abnormality and T wave inversion in lateral leads
- Loaded with aspirin 325 mg 01/24/2025, continue 81 mg daily
- Provided IV heparin bolus and now on heparin drip.
- Check echocardiogram, pending results patient may need ischemic evaluation
- Chest x-ray pending, proBNP unremarkable at 110. Patient was provided a dose of IV Lasix 40 mg 01/24/2025
- CT of chest ordered to exclude PE
- Add on lipids to a.m. labs
HPI 01/24/2025:
Patient is an 84-year-old female with past medical history significant for chronic back pain with multiple steroid injections, degenerative disc disease, herniated disc of lumbar spine, vertebral compression fractures, radiculopathy, hiatal
hernia/Tate's of Esophagus, depression who presented to emergency department 01/18/2025 with complaints of ongoing intractable low back pain and some mild confusion. She was also found to have E.faecalis UTI sensitive to nitrofurantoin. MRIs
reveal old compression fractures but no new acute fractures on the morning of 01/24/2025 patient was working with physical therapy when she complained of feeling 'not well and weak 'and felt short of breath. She denied chest pain.. Patient was
placed back in bed and found to be hypoxic with SpO2 of 83% on room air. Oxygen improved with supplemental O2. proBNP was added to morning labs which was unremarkable at 110. Chest x-ray currently pending. Initial troponin 0.153. With T wave
inversion in lateral leads.
EKG demonstrated sinus rhythm with nonspecific ST-T wave abnormality. Patient was given 40 mg of IV Lasix as well as aspirin 325 mg. Patient now on heparin drip following bolus. Cardiology being asked to see patient given hypoxia and abnormal
troponin.
At time of this evaluation pt lying comfortably in bed denies CP, SOB at rest, orthopnea/PND but did seem dyspneic with prolonged conversation. Patient denies prior cardiac history. She reports she lives independently and does her own cooking
cleaning and can go up and down a flight of steps previously without chest pain or shortness of breath. She reports this is the first time she is ever felt this way
Data Reviewed
-
EKG: Report Reviewed by me, Discussed with Physician, Discussed with Nurse and Discussed with Patient
Radiology: Report Reviewed by me, Discussed with Physician, Discussed with Nurse and Discussed with Patient
Labs: Labs Reviewed by me, Discussed with Physician, Discussed with Nurse and Discussed with Patient
Old Records: Reviewed
[2025-01-24 13:40] LABS: D-Dimer 3.62 ug/mlFEU (0.00-0.50)
[2025-01-24 13:44] LABS: Very Low Density Lipoprotein 41 mg/dl (0-30)
[2025-01-24 13:50] LABS: HDL Cholesterol 61 mg/dl; LDL Cholesterol, Calculated 89 mg/dl
[2025-01-24 16:25] LABS: TSH 3.46 uIU/ml (0.47-4.68)
[2025-01-24] MEDS: ROXICODONE 5 MG PO ×2 (17:12→21:14)
--- NOTE | 2025-01-24 18:05 | W.PN.UPDATE ---
Addendum entered and electronically signed by Duke Mckeon MD 01/24/25 18:26:
Discussed with both nurse monitoring and IRAD offshore wind operations manager - will cont heparin, agreed that no indication for thrombolysis. Most recent VS 97.9, HR 96, BP 134/80, O2 sat 97% on 2L O2
Original Note:
Update Note
Progress Note Update
Findings of extensive pulmonary embolism. Patient is hemodynamically stable, heparin target changed to DVT and re-bolus ordered. Contacting pulm and IRAD to verify if patient will be a candidate for thrombolysis with signs of RH straing on Echo and
CT.
[2025-01-24 18:25] VITALS: BP 134/80
--- NOTE | 2025-01-24 18:54 | PTCARENOTE ---
CT chest + for PE. Heparin gtt rate changed to 1100 units/hr per order. PTT obtained prior to rate change. VSS. HR 96, SpO2 97% on 2L, BP 134/80. Pt resting in bed at this time without complaint. Transfer order placed for IMU level of care. Awaiting
bed assignment at this time. Report given to retail shift manager RN.
[2025-01-24 19:17] LABS: APTT 163.8 Sec (23.4-35.0)
[2025-01-24 19:28] VITALS: BP 105/68
[2025-01-24 20:34] LABS: Troponin I 0.528 ng/ml
[2025-01-24] MEDS: REMERON 30 MG PO (21:08)
[2025-01-24 23:02] VITALS: BP 115/78
[2025-01-24 23:03] VITALS: BMI 22.8
--- NOTE | 2025-01-24 23:15 | PTCARENOTE ---
Pt upgraded to IMU d/t extensive PE, heparin gtt & new use of oxygen. BP's stabe but soft. NSR on monitor. Remains on 3LNC. Heparin gtt running at 9ml/hr, next PTT at 0245. Pt aaox3, pleasant, denies pain or SOB. NO issues. Will monitor.
[2025-01-25] VITALS (12 sets, daily range): BP systolic 89–124; BP diastolic 64–80
[2025-01-25 03:19] LABS: APTT > 200 Sec (23.4-35.0)
[2025-01-25 06:07] LABS: Hematocrit 42.2 % (37.0-47.0); Hemoglobin 14.2 g/dL (12.0-16.0); Mean Corp Hgb Conc. 33.6 g/dL (33.0-37.0); Mean Corpuscular Volume 94.6 fL (81.0-99.0); Nucleated Red Blood Cells % 0 %; Platelet Count 449 10^3/uL (130-400); Red Cell Dist. Width 13.0 % (11.5-14.5)
[2025-01-25 06:25] LABS: ALT (SGPT) 45 U/L (0-35); AST (SGOT) 36 U/L (14-36); Albumin 3.3 g/dl (3.5-5.0); Alkaline Phosphatase 78 U/L (38-126); Blood Urea Nitrogen 17 mg/dl (7-17); Calcium 9.7 mg/dl (8.4-10.2); Carbon Dioxide 26 mmol/L (22-30); Chloride 111 mmol/L (98-107); Estimated Creatinine Clearance 44 ml/min; Glucose 95 mg/dl (70-99); Potassium 4.4 mmol/L (3.5-5.1); Sodium 142 mmol/L (135-145); Total Protein 5.6 g/dl (6.3-8.2); eGFR > 60.00
[2025-01-25 06:33] LABS: Troponin I 0.450 ng/ml
--- NOTE | 2025-01-25 08:04 | W.PN.CARDCBS ---
Today's Communication / Plan
-
Patient found to have bilateral pulmonary embolism with RV strain/hypokinesis
Blood pressure currently stable and she clinically denies chest pains or shortness of breath
Continue IV heparin and start oral anticoagulation
She will need repeat echo in 2 to 3 months to reevaluate her right ventricle
Continue telemetry.
Impression / Plan
-
PCP: Alesha Schaffer
Bird Tender: None prior to admission, initial consultation Dr. Dial
Impression:
Bilateral pulmonary embolism
Abnormal troponin
Presented 01/18/2025 with a retractable low back pain and mild confusion
E.faecalis UTI
Acute hypoxic respiratory insufficiency/FRITZ
Abnormal troponin
Chronic back pain status post multiple steroid injections
DJD
Radiculopathy
Vertebral compression fractures
Herniated disc of lumbar spine
Vascular ectasias of gastric antrum
Benign gastric polyps (hyperplastic and fundic gland)
Tate's esophagus
Hiatal hernia
Depression
Cholelithiasis
Bilat. cataracts
Colon polyps
Osteopenia
Echo 01/24/2025: LVEF 65%, mildly dilated right ventricle with moderate RV hypokinesis. PA pressure 34
Plan:
-Patient found to have bilateral pulmonary embolism yesterday. This is the etiology of her abnormal troponin. It peaked at 0.5 and is back down to 0.4.
-Blood pressure is on the low side but she remains hemodynamically stable. Continue IV heparin and start oral anticoagulation.
-Telemetry reveals normal sinus rhythm with heart rates in the 70 to 80 bpm range.
-Echo with RV dysfunction and mildly elevated PA pressures. She will need a repeat echo in 2 to 3 months to reevaluate her right ventricle
- LDL is 89
- Continue Macrobid for UTI.
- Continue Neurontin and lidocaine patch for her pain
- Discussed with the patient.
HPI 01/24/2025:
Patient is an 84-year-old female with past medical history significant for chronic back pain with multiple steroid injections, degenerative disc disease, herniated disc of lumbar spine, vertebral compression fractures, radiculopathy, hiatal
hernia/Tate's of Esophagus, depression who presented to emergency department 01/18/2025 with complaints of ongoing intractable low back pain and some mild confusion. She was also found to have E.faecalis UTI sensitive to nitrofurantoin. MRIs
reveal old compression fractures but no new acute fractures on the morning of 01/24/2025 patient was working with physical therapy when she complained of feeling 'not well and weak 'and felt short of breath. She denied chest pain.. Patient was
placed back in bed and found to be hypoxic with SpO2 of 83% on room air. Oxygen improved with supplemental O2. proBNP was added to morning labs which was unremarkable at 110. Chest x-ray currently pending. Initial troponin 0.153. With T wave
inversion in lateral leads.
EKG demonstrated sinus rhythm with nonspecific ST-T wave abnormality. Patient was given 40 mg of IV Lasix as well as aspirin 325 mg. Patient now on heparin drip following bolus. Cardiology being asked to see patient given hypoxia and abnormal
troponin.
At time of this evaluation pt lying comfortably in bed denies CP, SOB at rest, orthopnea/PND but did seem dyspneic with prolonged conversation. Patient denies prior cardiac history. She reports she lives independently and does her own cooking
cleaning and can go up and down a flight of steps previously without chest pain or shortness of breath. She reports this is the first time she is ever felt this way
Progress Note - Bird Tender
Subjective
Date of Service: January 25, 2025
Overall feels well. Denies any shortness of breath overnight. Denies chest pains but
Objective
Labs:
01/25/25 05:41
01/25/25 05:41
Labs
Hgb 14.2 g/dL (12.0-16.0) 01/25/25 05:41
Hct 42.2 % (37.0-47.0) 01/25/25 05:41
Plt Count 449 10^3/uL (130-400) H 01/25/25 05:41
APTT > 200 Sec (23.4-35.0) H* 01/25/25 02:39
Sodium 142 mmol/L (135-145) 01/25/25 05:41
Potassium 4.4 mmol/L (3.5-5.1) 01/25/25 05:41
BUN 17 mg/dl (7-17) 01/25/25 05:41
Creatinine 0.8 mg/dL (0.6-1.0) 01/25/25 05:41
Glucose 95 mg/dl (70-99) 01/25/25 05:41
Troponins
01/24/25 01/24/25 01/25/25
12:10 19:51 05:41
Troponin I 0.153 H* 0.528 H* D 0.450 H*
Vital Signs and I&O:
Vital Signs
Temp Pulse Resp BP Pulse Ox
97.5 F 72 15 97/64 95
01/25/25 07:50 01/25/25 06:48 01/25/25 06:48 01/25/25 06:48 01/25/25 06:48
Vital Signs
Temp Pulse Resp BP Pulse Ox
97.5 F 72 15 97/64 95
01/25/25 07:50 01/25/25 06:48 01/25/25 06:48 01/25/25 06:48 01/25/25 06:48
Intake & Output
01/23/25 01/24/25 01/25/25 01/26/25
06:59 06:59 06:59 06:59
Intake Total 480 / 480 480 / 480
Balance 480 / 480 480 / 480
Physical Exam
Physical Exam
GEN: No distress, awake, Ox3
HEENT: supple, anicteric, mmm
LUNGS: Scattered rhonchi
CV: Reg, S1/S2, 1/6 syst LSB, no gallop
ABD: soft, BS+, NT/ND
EXT: No edema
NEURO: Gross non-focal
SKIN: No rash
--- NOTE | 2025-01-25 08:24 | W.PN.HOSP.TC ---
Today's Communication/Plan
-
cont IV hep and monitoring in IMU
Pulm consult
discussed with sister in details
Assessment / Plan
Assessment / Plan
84yo F with PMHX of chronic back pain s/p injections in the past, neuropathy, anxiety, GERD, insomnia, had twisted her back on 12/24/24, but initially without any symptoms, in 2 weeks woke up with severe lower back pain. MRI with multilevel DJD, no
significant spinal canal stenosis. Chronic compression deformities of T7, L1, L2, L3 and L5. Accidental findings of appendicolith without inflammatory changes on CT abd. Pain improved, patient able to ambulate and Ucx resulted with E.faecalis
sensitive to nitrofurantoin. Developed hypoxia on 01/24/25 2/2 pulmonary embolism in spite of Hep PPX
A/P:
#Acute respiratory hypoxic failure 2.2 acute most likely provoked pulmonary embolism
Mild RH strain on CT
Echo: EF 65-75%, normal LV functiona nd size, moderately decreased RV function, mild TR, elevated pulmonary pressure 34mmHg
hemodynamically stable, so no indication for thrombolysis
Pulm consult
wean off O2
Heparin drip and eventual DOAC
US LE neg for DVT
Might benefit from outpatient hematology eval
CT C/A/P without overt signs of neoplasia
PESI 103 Class III, 3.2-7.1% risk mortality in 30 days - initial IV heparin and IMU monitoring indicated, that can switch to oral if patient starts to objectively improve, might benefit from repeated Echo before initiation of DOAC
#Non-ischemic myocardial injury 2/2 PE
cardio consult
Trop followed, started to decrease
#Chronic compression deformities of T7, L1, L2, L3 and L5
#DJD
Pain mgmt: patient reportedly was able to function and ambulate with current pain meds, however still has bouts of shooting pain when turning in the bed. Partially the problem is an expectations from the patient to have pain removed entirely and
immediately. Explained that will target relieve and it might take days.
trial of steroids
PT/OT
#Appendicolith
no concern for inflammation on CT
#Lethargy on admission
#UTI
UA positive for infection, Cx growing enterococcus
Reasonable to treat
Nitrofurantoin as per Ucx x7 days
#Thrombocytosis
suspect reactive
follow CBC
#anxiety
#GERD
#Neuropathy
cont home meds
DVT ppx hep
Full code
I have spent at least 51min reviewing chart, test results, communication with family and providing direct patient care
Anticipated Discharge: > 48 hours
Subjective/Interval History
-
Date of Service: January 25, 2025
Objective Data
-
Labs:
Laboratory Results
01/25/25 01/25/25 01/25/25
02:39 05:41 11:15
WBC 17.2 H
Hgb 14.2
Hct 42.2
Plt Count 449 H
APTT > 200 H* Pending
Sodium 142
Potassium 4.4
Chloride 111 H
Carbon Dioxide 26
BUN 17
Creatinine 0.8
Glucose 95
Calcium 9.7
Total Bilirubin 0.5
AST 36
ALT 45 H
Alkaline Phosphatase 78
Vital Signs:
Vital Signs
Temp Pulse Resp BP Pulse Ox
97.5 F 72 15 97/64 95
01/25/25 07:50 01/25/25 06:48 01/25/25 06:48 01/25/25 06:48 01/25/25 06:48
I&O
01/24/25 01/25/25 01/26/25
06:59 06:59 06:59
Intake Total 480 / 480
Balance 480 / 480
Review of Systems
-
All other systems: Reviewed and negative
Constitutional: Reports No Symptoms
Physical Exam
-
General: Comfortable
HEENT: Normocephalic
Cardiac: Regular Rhythm
GI: Soft, Nontender and Nondistended
Musculoskeletal: No Clubbing, No Cyanosis and No Edema
Neuro: Awake
Psych: Calm
[2025-01-25] MEDS: VITAMIN C 500 MG PO (08:33)
[2025-01-25] MEDS: PROZAC 20 MG PO (08:33)
[2025-01-25] MEDS: NEURONTIN 400 MG PO ×3 (08:33→21:06)
[2025-01-25] MEDS: PROTONIX 40 MG PO (08:33)
[2025-01-25] MEDS: LIDOCAINE 4% PATCH TOPICAL (08:34)
[2025-01-25] MEDS: MACROBID 100 MG PO ×2 (08:34→19:14)
[2025-01-25 11:37] LABS: APTT 78.7 Sec (23.4-35.0)
--- NOTE | 2025-01-25 12:55 | PTCARENOTE ---
Pt's assessment as documented. Aox3. SR with a prolonged QT on tele monitor. Sating mid 90's on 3L NC. Heparin gtt infusing as ordered- see intervention. Voiding on BSC. Family at bedside, updated on plan of care. Ringing appropriately, call joseph
within reach. Bed alarm in place for safety.
--- NOTE | 2025-01-25 13:00 | CON.PUL ---
Consultation
Consultation Request
Date/Time Consultation Requested: 01/25
Date/Time Consultation Performed: 01/25
Reason for Consultation: Acute PE
Medical History
-
History of Present Illness:
Patient was seen and examined earlier today. Case was also reviewed with hospitalist service 01/24 and interventional radiology. Patient is an 84-year-old female admitted to [facility] 01/19/2025. She was recently discharged After being
hospitalized for 2 days for intractable lower paraspinal back pain which was thought to be musculoskeletal. Patient states she had fallen 1 month prior. She returns to [facility] with continued lower back pain. She was admitted for
lidocaine patch and pain management. During her hospital stay she developed hypoxic respiratory insufficiency requiring oxygen therapy. This led to CT imaging which confirmed bilateral PE. She was started on IV heparin therapy 01/24. We are asked
to help from a pulmonary standpoint. Presently she feels much improved. She denies any chest pain, chest tightness, pleurisy. Her lower back pain is also improved. She denies cough, hemoptysis, palpitations, blood in urine or stool.
.
PMH: Chronic back pain requiring steroid injections in the past, GERD, depression. She denies any prior history of blood clots, heart attack, stroke, cancer
Past Medical History
Past Medical History: None (See above)
Past Surgical History: None (See above)
Social History
Tobacco: Non-smoker
Alcohol: None
Drug: None
Living: Alone
Employment: Retired (Retired nurse)
Family History
Family History: Other (1 son from accident. Another son is healthy. 2 siblings healthy. Family history negative for blood clots)
Allergies / Home Medications
Allergies
Allergy/AdvReac Type Severity Reaction Status Date / Time
Penicillins Allergy Hives Verified 01/15/25 13:13
Home Medications
�Medication �Instructions �Recorded �Confirmed �Last Taken �Type
ascorbic acid (vitamin C) 500 mg 500 mg PO DAILY Supplement 01/17/25 01/19/25 Unknown History
tablet (Vitamin C)
fluoxetine 20 mg capsule 20 mg PO DAILY Depression 01/17/25 01/19/25 Unknown History
gabapentin 400 mg tablet 400 mg PO TID Neurological 01/17/25 01/19/25 Unknown History
Condition
mirtazapine 30 mg tablet 30 mg PO HS Depression 01/17/25 01/19/25 Unknown History
omeprazole 20 mg tablet,delayed 20 mg PO DAILY Gastrointestinal 01/17/25 01/19/25 Unknown History
release Issue
lidocaine 4 % topical patch 1 patch topical DAILY back pain 01/19/25 01/19/25 Unknown History
therapeutic multivitamin 1 tab PO DAILY Supplement 01/19/25 01/19/25 Unknown History
acetaminophen 325 mg tablet 650 mg (2 x 325 mg) PO Q4HPRN PRN 01/23/25 Unknown Rx
mild pain/PATEL/temp> 100.4F #90 tabs
lidocaine 4 % topical patch 1 patch topical DAILY lower back 01/23/25 Unknown Rx
pain #30 ea
nitrofurantoin 100 mg PO BID #11 caps 01/23/25 Unknown Rx
monohydrate/macrocrystals 100 mg
capsule
oxycodone 5 mg tablet 5 mg PO Q8HPRN PRN moderate-severe 01/23/25 Unknown Rx
pain #4 tabs
polyethylene glycol 3350 17 gram 17 g PO DAILYPRN PRN constipation 01/23/25 Unknown Rx
oral powder packet #30 ea
Review of Systems
-
All other systems: Negative unless noted
Vitals / Labs / Diagnostic Testing
Vital Signs
Temp Pulse Resp BP Pulse Ox
97.7 F 72 22 124/79 96
01/25/25 11:45 01/25/25 12:00 01/25/25 12:00 01/25/25 10:00 01/25/25 12:31
Lab Data
01/25/25 05:41
01/25/25 05:41
Laboratory Results
01/24/25 01/24/25 01/25/25
13:18 18:32 02:39
APTT 27.9 163.8 H* > 200 H*
01/25/25
11:15
APTT 78.7 H
Microbiology
01/24/25 11:05 Nasal Swab Influenza Types A & B (ENRIQUE) - Final
Negative for Influenza A & B, NAAT
Negative results must be combined with clinical observations
and patient history.
Nucleic Acid Amplification test (NAAT)performed on the
[employer] platform.
01/19/25 16:39 Urine Urine Culture - Final
Enterococcus faecalis
Diagnostic Testing:
Physical Exam
-
HEENT: Normocephalic and Anicteric
Cardiovascular: S1/S2, Regular Rhythm, Murmur (n), Rub (n) and Peripheral Edema (n)
Respiratory: Wheeze (n), Rales (n), Rhonchi (n) and Non-Labored Respirations
GI: Soft, Non Distended and Non Tender
Neurology: Awake, Alert, Oriented and No Motor Deficits (Moves all extremities)
Skin: Good Color
General: Comfortable
Assessment
-
84-year-old female with history of chronic back pain, admits to falling 1 month prior, was hospitalized for 2 days recently discharged 01/17, returns to the hospital 01/18 with worsening lower back pain. Admitted for pain control, then developed
hypoxia prompting CT imaging which confirmed bilateral PE. We are asked to comment on pulmonary process
Acute bilateral PE
Mild RV dilation/moderately decreased function
PA pressure 34
Mild RV strain per CT imaging, ration 1.2
Dopplers negative
Elevated troponin
Normal BNP
Acute hypoxic respiratory insufficiency
89%
Leukocytosis severe compression deformity
T7 and mild compression deformity L1
Moderate DJD
Chronic back pain, worsened
UTI, Enterococcus faecalis
On Macrodantin therapy
Plan/recommendations
At this time, patient appears to be comfortable
She is without shortness of breath, chest pain, chest tightness, lightheadedness
She feels her lower back pain is improved significantly since admission
She remains on heparin therapy, therapeutic
Reviewed images at length. Bilateral pulm embolism noted
Mild RV strain
No evidence of hypotension, significant tachycardia
PESI Class III
Moving forward
For now, continue with empiric heparin therapy
Would favor additional 24 hours prior to considering transition to oral agent at this time
RV strain noted, mild
No significant hypotension at this time.
Systolic pressure 89-94 overnight during sleep, presently 124/79. No evidence of tachycardia
96% on 3 L
At this time, feel that risks of bleeding event outweigh potential benefits of lytic therapy
Interestingly, back pain is improved
Prior MRI imaging from earlier this month which revealed chronic compression deformities, chronic DJD
Reviewed at length with patient
All questions answered
We will follow
[2025-01-25 17:36] LABS: APTT 52.8 Sec (23.4-35.0)
[2025-01-25] MEDS: HEPARIN 4700 UNITS IV (18:38)
[2025-01-25 20:46] LABS: Hepatitis B Surface Antigen Negative (Negative)
[2025-01-25 21:05] LABS: Hepatitis C Antibody Negative (Negative)
[2025-01-25] MEDS: REMERON 30 MG PO (21:06)
[2025-01-25] MEDS: HEPARIN 25000 UNITS/250 ML IV (21:41)
[2025-01-26] VITALS (12 sets, daily range): BP systolic 110–126; BP diastolic 59–83
[2025-01-26 01:01] LABS: APTT > 200 Sec (23.4-35.0)
--- NOTE | 2025-01-26 05:10 | PTCARENOTE ---
Heparin gtt continued, see worklist for titrations. O2 titrated as tolerated. Currently 2L O2, 97%. Pt denies complaints at this time. Care ongoing.
[2025-01-26 05:59] LABS: Hematocrit 39.5 % (37.0-47.0); Hemoglobin 13.3 g/dL (12.0-16.0); Mean Corp Hgb Conc. 33.7 g/dL (33.0-37.0); Mean Corpuscular Volume 94.3 fL (81.0-99.0); Nucleated Red Blood Cells % 0 %; Platelet Count 397 10^3/uL (130-400); Red Cell Dist. Width 13.2 % (11.5-14.5)
[2025-01-26 06:21] LABS: ALT (SGPT) 54 U/L (0-35); AST (SGOT) 31 U/L (14-36); Albumin 3.0 g/dl (3.5-5.0); Alkaline Phosphatase 76 U/L (38-126); Blood Urea Nitrogen 21 mg/dl (7-17); Calcium 9.3 mg/dl (8.4-10.2); Carbon Dioxide 27 mmol/L (22-30); Chloride 110 mmol/L (98-107); Estimated Creatinine Clearance 50 ml/min; Glucose 96 mg/dl (70-99); Potassium 3.9 mmol/L (3.5-5.1); Sodium 140 mmol/L (135-145); Total Protein 5.1 g/dl (6.3-8.2); eGFR > 60.00
--- NOTE | 2025-01-26 07:42 | W.PN.CARDCBS ---
Today's Communication / Plan
-
Continue IV heparin and transition to oral anticoagulation
Blood pressure and heart rates are stable
Will arrange follow-up echocardiogram in 2 to 3 months.
Continue telemetry
Continue pain control for her back pain
Impression / Plan
-
PCP: Alesha Schaffer
Avionics Integration Engineer: None prior to admission, initial consultation Dr. Dial
Impression:
Bilateral pulmonary embolism
Abnormal troponin
Presented 01/18/2025 with a retractable low back pain and mild confusion
E.faecalis UTI
Acute hypoxic respiratory insufficiency/FRITZ
Abnormal troponin
Chronic back pain status post multiple steroid injections
DJD
Radiculopathy
Vertebral compression fractures
Herniated disc of lumbar spine
Vascular ectasias of gastric antrum
Benign gastric polyps (hyperplastic and fundic gland)
Tate's esophagus
Hiatal hernia
Depression
Cholelithiasis
Bilat. cataracts
Colon polyps
Osteopenia
Echo 01/24/2025: LVEF 65%, mildly dilated right ventricle with moderate RV hypokinesis. PA pressure 34
Plan:
-Patient found to have bilateral pulmonary embolism yesterday. This is the etiology of her abnormal troponin. It peaked at 0.5 and is back down to 0.4.
-Blood pressure is stable. Continue IV heparin and start oral anticoagulation.
-Telemetry reveals normal sinus rhythm with heart rates in the 60-80 bpm range.
-Echo with RV dysfunction and mildly elevated PA pressures. She will need a repeat echo in 2 to 3 months to reevaluate her right ventricle
- LDL is 89
- Continue Macrobid for UTI.
- Continue Neurontin and lidocaine patch for her pain
- Discussed with the patient.
HPI 01/24/2025:
Patient is an 84-year-old female with past medical history significant for chronic back pain with multiple steroid injections, degenerative disc disease, herniated disc of lumbar spine, vertebral compression fractures, radiculopathy, hiatal
hernia/Tate's of Esophagus, depression who presented to emergency department 01/18/2025 with complaints of ongoing intractable low back pain and some mild confusion. She was also found to have E.faecalis UTI sensitive to nitrofurantoin. MRIs
reveal old compression fractures but no new acute fractures on the morning of 01/24/2025 patient was working with physical therapy when she complained of feeling 'not well and weak 'and felt short of breath. She denied chest pain.. Patient was
placed back in bed and found to be hypoxic with SpO2 of 83% on room air. Oxygen improved with supplemental O2. proBNP was added to morning labs which was unremarkable at 110. Chest x-ray currently pending. Initial troponin 0.153. With T wave
inversion in lateral leads.
EKG demonstrated sinus rhythm with nonspecific ST-T wave abnormality. Patient was given 40 mg of IV Lasix as well as aspirin 325 mg. Patient now on heparin drip following bolus. Cardiology being asked to see patient given hypoxia and abnormal
troponin.
At time of this evaluation pt lying comfortably in bed denies CP, SOB at rest, orthopnea/PND but did seem dyspneic with prolonged conversation. Patient denies prior cardiac history. She reports she lives independently and does her own cooking
cleaning and can go up and down a flight of steps previously without chest pain or shortness of breath. She reports this is the first time she is ever felt this way
Progress Note - Avionics Integration Engineer
Subjective
Date of Service: January 26, 2025
Denies chest pains or shortness of breath. Resting in bed. She remains on oxygen.
Objective
Labs:
01/26/25 05:31
01/26/25 05:31
Labs
Hgb 13.3 g/dL (12.0-16.0) 01/26/25 05:31
Hct 39.5 % (37.0-47.0) 01/26/25 05:31
Plt Count 397 10^3/uL (130-400) 01/26/25 05:31
APTT > 200 Sec (23.4-35.0) H* 01/26/25 00:19
Sodium 140 mmol/L (135-145) 01/26/25 05:31
Potassium 3.9 mmol/L (3.5-5.1) 01/26/25 05:31
BUN 21 mg/dl (7-17) H 01/26/25 05:31
Creatinine 0.7 mg/dL (0.6-1.0) 01/26/25 05:31
Glucose 96 mg/dl (70-99) 01/26/25 05:31
Troponins
01/24/25 01/24/25 01/25/25
12:10 19:51 05:41
Troponin I 0.153 H* 0.528 H* D 0.450 H*
Vital Signs and I&O:
Vital Signs
Temp Pulse Resp BP Pulse Ox
97.0 F 62 21 110/65 97
01/26/25 03:00 01/26/25 06:00 01/26/25 06:00 01/26/25 06:00 01/26/25 06:00
Vital Signs
Temp Pulse Resp BP Pulse Ox
97.0 F 62 21 110/65 97
01/26/25 03:00 01/26/25 06:00 01/26/25 06:00 01/26/25 06:00 01/26/25 06:00
Intake & Output
01/24/25 01/25/25 01/26/25 01/27/25
06:59 06:59 06:59 06:59
Intake Total 480 / 480
Balance 480 / 480
Physical Exam
Physical Exam
GEN: No distress, awake, Ox3
HEENT: supple, anicteric, mmm
LUNGS: CTA, no wheezes/rales
CV: Reg, S1/S2, 1/6 syst LSB, no gallop
ABD: soft, BS+, NT/ND
EXT: No edema
NEURO: Gross non-focal
SKIN: No rash
[2025-01-26] MEDS: MACROBID 100 MG PO ×2 (08:50→19:59)
[2025-01-26] MEDS: VITAMIN C 500 MG PO (08:50)
[2025-01-26] MEDS: PROZAC 20 MG PO (08:50)
[2025-01-26] MEDS: NEURONTIN 400 MG PO ×3 (08:50→19:59)
[2025-01-26] MEDS: PROTONIX 40 MG PO (08:50)
[2025-01-26] MEDS: LIDOCAINE 4% PATCH TOPICAL ×2 (08:50→16:25)
[2025-01-26 09:51] LABS: APTT 56.4 Sec (23.4-35.0)
[2025-01-26] MEDS: HEPARIN 4700 UNITS IV (10:23)
--- NOTE | 2025-01-26 10:33 | PTCARENOTE ---
Patient OOB to BR stand by assist x1 with rolling walker. Patient pulse ox 95% on 2L o2. PTT assessment at 1015 was 56.4. As per protocol heparin drip increased to 900 units/hr with 4700 unit bolus. Next PTT at 16:17. Patient back pain well
controlled at the moment. Patient currently eating breakfast in bed. SR on monitor. Will monitor.
--- NOTE | 2025-01-26 12:05 | W.PN.HOSP.TC ---
Today's Communication/Plan
-
Heparin drip to stop on 01/27/25 at 8am and start Eliquis
Assessment / Plan
Assessment / Plan
84yo F with PMHX of chronic back pain s/p injections in the past, neuropathy, anxiety, GERD, insomnia, had twisted her back on 12/24/24, but initially without any symptoms, in 2 weeks woke up with severe lower back pain. MRI with multilevel DJD, no
significant spinal canal stenosis. Chronic compression deformities of T7, L1, L2, L3 and L5. Accidental findings of appendicolith without inflammatory changes on CT abd. Pain improved, patient able to ambulate and Ucx resulted with E.faecalis
sensitive to nitrofurantoin. Developed hypoxia on 01/24/25 2/2 pulmonary embolism in spite of Hep PPX
A/P:
#Acute respiratory hypoxic failure 2.2 acute most likely provoked pulmonary embolism
Mild RH strain on CT
Echo: EF 65-75%, normal LV functiona nd size, moderately decreased RV function, mild TR, elevated pulmonary pressure 34mmHg
hemodynamically stable, so no indication for thrombolysis
Pulm consult
wean off O2
Heparin drip and eventual DOAC
US LE neg for DVT
Might benefit from outpatient hematology eval
CT C/A/P without overt signs of neoplasia
PESI 103 Class III, 3.2-7.1% risk mortality in 30 days - initial IV heparin and IMU monitoring indicated, that can switch to oral if patient starts to objectively improve, plan Eliquis start on 01/27/25 AM
#Non-ischemic myocardial injury 2/2 PE
cardio consult
Trop followed, started to decrease
#Chronic compression deformities of T7, L1, L2, L3 and L5
#DJD
Pain mgmt: patient reportedly was able to function and ambulate with current pain meds, however still has bouts of shooting pain when turning in the bed. Partially the problem is an expectations from the patient to have pain removed entirely and
immediately. Explained that will target relieve and it might take days.
trial of steroids
PT/OT
#Appendicolith
no concern for inflammation on CT
#Lethargy on admission
#UTI
UA positive for infection, Cx growing enterococcus
Reasonable to treat
Nitrofurantoin as per Ucx x7 days
#Thrombocytosis
suspect reactive - resolved
follow CBC
#anxiety
#GERD
#Neuropathy
cont home meds
DVT ppx hep
Full code
I have spent at least 54min reviewing chart, test results, communication with family and providing direct patient care
Anticipated Discharge: 24 - 48 hours
Subjective/Interval History
-
Date of Service: January 26, 2025
Objective Data
-
Labs:
Laboratory Results
01/26/25 01/26/25 01/26/25
00:19 05:31 09:24
WBC 15.4 H
Hgb 13.3
Hct 39.5
Plt Count 397
APTT > 200 H* 56.4 H
Sodium 140
Potassium 3.9
Chloride 110 H
Carbon Dioxide 27
BUN 21 H
Creatinine 0.7
Glucose 96
Calcium 9.3
Total Bilirubin 0.5
AST 31
ALT 54 H
Alkaline Phosphatase 76
01/26/25
16:17
WBC
Hgb
Hct
Plt Count
APTT Pending
Sodium
Potassium
Chloride
Carbon Dioxide
BUN
Creatinine
Glucose
Calcium
Total Bilirubin
AST
ALT
Alkaline Phosphatase
Vital Signs:
Vital Signs
Temp Pulse Resp BP Pulse Ox
98.0 F 66 21 124/83 95
01/26/25 11:20 01/26/25 10:06 01/26/25 10:06 01/26/25 10:06 01/26/25 10:41
I&O
01/25/25 01/26/25 01/27/25
06:59 06:59 06:59
Intake Total 600 / 600
Balance 600 / 600
Review of Systems
-
History Source: Patient
All other systems: Reviewed and negative
Physical Exam
-
General: No Apparent Distress
HEENT: Normocephalic
Respiratory: Clear to Auscultation
GI: Soft, Nontender and Nondistended
Musculoskeletal: No Clubbing, No Cyanosis and No Edema
Neuro: Awake, Alert, Oriented and AO x 3
Psych: Calm
--- NOTE | 2025-01-26 15:04 | W.PN.PUL3 ---
Today's Communication / Plan
-
Ambulatory saturation 01/27
Transition to oral therapy 01/27
Will require follow-up in 4 to 6 weeks
Anticipate disposition in the next 24 to 48 hours
Assessment
-
84-year-old female with history of chronic back pain, admits to falling 1 month prior, was hospitalized for 2 days recently discharged 01/17, returns to the hospital 01/18 with worsening lower back pain. Admitted for pain control, then developed
hypoxia prompting CT imaging which confirmed bilateral PE. We are asked to comment on pulmonary process
Acute bilateral PE
Mild RV dilation/moderately decreased function
PA pressure 34
Mild RV strain per CT imaging, ration 1.2
Dopplers negative
Elevated troponin
Normal BNP
Acute hypoxic respiratory insufficiency
89%
Leukocytosis severe compression deformity
T7 and mild compression deformity L1
Moderate DJD
Chronic back pain, worsened
UTI, Enterococcus faecalis
On Macrodantin therapy
Plan/recommendations
At this time, patient appears to be comfortable
She is without shortness of breath, chest pain, chest tightness, lightheadedness
She feels her lower back pain is improved significantly since admission
She remains on heparin therapy, therapeutic
Reviewed images at length. Bilateral pulm embolism noted
Mild RV strain
No evidence of hypotension, significant tachycardia
PESI Class III
Moving forward
For now, continue with empiric heparin therapy
Agree with transitioning to oral anticoagulation in a.m. 01/27
Systolic pressure 89-94 overnight during sleep, presently 124/79. No evidence of tachycardia
97% on 2 L
Ambulating with rolling walker per nursing notes. Blood pressure stable
At this time, feel that risks of bleeding event outweigh potential benefits of lytic therapy
Interestingly, back pain is improved
Prior MRI imaging from earlier this month which revealed chronic compression deformities, chronic DJD
Reviewed at length with patient
Reviewed importance of pulmonary follow-up
Information left in chart
Disposition efforts
Subjective Data
-
Date of Service:
Date of Service: January 26, 2025
Subjective:
Patient is feeling much improved. She denies shortness of breath, chest pain, nausea, cough. Examined earlier this morning. Remains on anticoagulation, heparin.
Objective Data
Data Reviewed
Vital Signs / I&O / Oxygen:
Vital Signs
Temp Pulse Resp BP Pulse Ox
98.0 F 65 17 121/59 96
01/26/25 11:20 01/26/25 14:00 01/26/25 14:00 01/26/25 14:00 01/26/25 14:16
Intake and Output
01/25/25 01/26/25 01/27/25
06:59 06:59 06:59
Intake Total 600 / 600
Balance 600 / 600
SaO2 96
Nasal Cannula flow liters per 2
minute
Physical Exam
General: Comfortable
HEENT: Normocephalic and Anicteric
Cardiovascular: S1-S2, Regular Rhythm, Murmur (n) and Rub (n)
Respiratory: Wheeze (n), Crackles (n), Rhonchi (n) and Non-Labored Respirations
GI: Soft, Non Distended and Non Tender
Neurology: Awake, Alert and No Motor Deficits
Skin: Jaundice (n) and Rash (n)
Labs/Micro/Reports
Lab Data
01/26/25 05:31
01/26/25 05:31
Laboratory Results
01/25/25 01/26/25 01/26/25
17:12 00:19 09:24
APTT 52.8 H > 200 H* 56.4 H
Microbiology
01/24/25 11:05 Nasal Swab Influenza Types A & B (ENRIQUE) - Final
Negative for Influenza A & B, NAAT
Negative results must be combined with clinical observations
and patient history.
Nucleic Acid Amplification test (NAAT)performed on the
[employer] platform.
[2025-01-26 16:58] LABS: APTT 174.1 Sec (23.4-35.0)
--- NOTE | 2025-01-26 18:28 | PTCARENOTE ---
Last PTT assessment was 174.1 as per protocol heparin drip on hold for 1 hour and restarted with decrease by 200 units. Heparin drip is now infusing at 700 units/hr. Next PTT at 12:10. Drip will be discontinued in AM after dose of eliquis
administered. Patient drowsy sleeping intermittently all day.
[2025-01-26] MEDS: REMERON 30 MG PO (19:59)
[2025-01-27] VITALS (12 sets, daily range): BP systolic 107–155; BP diastolic 62–99; PULSE 63–72; O2SAT 97
[2025-01-27 00:58] LABS: APTT 83.4 Sec (23.4-35.0)
--- NOTE | 2025-01-27 07:21 | PTCARENOTE ---
Pt continued on heparin gtt throughout the night. Pt drowsy, but arousable to voice and able to take HS medications without issue. Care ongoing
[2025-01-27] MEDS: ELIQUIS 10 MG PO (09:14)
[2025-01-27] MEDS: NEURONTIN 400 MG PO (09:14)
[2025-01-27] MEDS: MACROBID 100 MG PO (09:14)
[2025-01-27] MEDS: PROTONIX 40 MG PO (09:14)
[2025-01-27] MEDS: VITAMIN C 500 MG PO (09:15)
[2025-01-27] MEDS: PROZAC 20 MG PO (09:15)
[2025-01-27] MEDS: LIDOCAINE 4% PATCH TOPICAL (09:16)
--- NOTE | 2025-01-27 09:26 | W.PN.PUL3 ---
Today's Communication / Plan
-
Doing well, remains on low o2, home o2 eval placed
Transitioned to PO eliquis this AM, tolerating well
Ongoing PT/OT assessments
Updated family member at bedside
OP Pulm FU recommended
Can transfer to [facility]
Discharge planning otherwise per team
Assessment
-
84-year-old female with history of chronic back pain, admits to falling 1 month prior, was hospitalized for 2 days recently discharged 01/17, returns to the hospital 01/18 with worsening lower back pain. Admitted for pain control, then developed
hypoxia prompting CT imaging which confirmed bilateral PE. We are asked to comment on pulmonary process
Acute bilateral PE
Mild RV dilation/moderately decreased function
PA pressure 34
Mild RV strain per CT imaging, ration 1.2
Dopplers negative
Elevated troponin
Normal BNP
Acute hypoxic respiratory insufficiency
89%
Leukocytosis severe compression deformity
T7 and mild compression deformity L1
Moderate DJD
Chronic back pain, worsened
UTI, Enterococcus faecalis
On Macrodantin therapy
Plan/recommendations
At this time, patient appears to be comfortable
She is without shortness of breath, chest pain, chest tightness, lightheadedness
She feels her lower back pain is improved significantly since admission
She is 97% on 2L--not known to be on home O2, home O2 eval placed
Reviewed images at length. Bilateral pulm embolism noted
Mild RV strain
No evidence of hypotension, significant tachycardia
PESI Class III
Transitioned to Eliqu this AM
Systolic pressure 89-94 overnight during sleep, presently 124/79. No evidence of tachycardia
97% on 2 L
Ambulating with rolling walker per nursing notes. Blood pressure stable
At this time, feel that risks of bleeding event outweigh potential benefits of lytic therapy
PT/OT evals
Interestingly, back pain is improved
Prior MRI imaging from earlier this month which revealed chronic compression deformities, chronic DJD
Reviewed at length with patient
Reviewed importance of pulmonary follow-up
Information left in chart
Disposition efforts
Diagnostic Data
Chest X-Ray: 01/24/25- No acute disease of the chest. Moderate hiatal hernia. Stable. Moderate elevation of the right hemidiaphragm. Stable. Mild right lower lobe atelectasis. New.
Compression fractures. Stable
CT Scan: CTA 01/24/25- 1. There are extensive bilateral lobar pulmonary emboli throughout the lungs which extend into the segmental branches. There are associated findings of right heart strain with RV LV ratio of 1.2, flattening of the
interventricular septum and reflux of contrast into the IVC.
Dupelx 01/24/25- No evidence of deep venous thrombosis bilaterally.
Echo: 01/24/25- 1. Ejection fraction is 65-70% by visual assessment.
2. Normal left ventricular size, wall thickness and systolic function. No regional wall motion abnormalities are seen.
3. Mild tricuspid regurgitation.
4. Right ventricular cavity size cavity is mildly dilated.
5. Right ventricular systolic function is moderately decreased.
6. Mild tricuspid regurgitation. Estimated pulmonary artery pressure of 34 mmHg assuming a right atrial pressure of 8 mmHg.
7. There are no prior studies available for comparison.
PFT's:
Reports and relevant images were personally reviewed.
Total time spent on this consultation/encounter __50__ minutes which includes review of history, physical exam, medications, laboratory data, personal review of imaging, extensive review of outpatient records, discussion with care team and
respiratory therapy.
Subjective Data
-
Date of Service:
Date of Service: January 27, 2025
Chief Complaint: Pulmonary Follow Up
Subjective:
Doing well, remains on low supplemental o2
No new complaints
Family at bedside
Objective Data
Data Reviewed
Vital Signs / I&O / Oxygen:
Vital Signs
Temp Pulse Resp BP Pulse Ox
98.3 F 54 18 109/62 96
08/25/25 08:13 01/27/25 06:00 01/27/25 06:00 01/27/25 06:00 01/26/25 21:05
Intake and Output
01/26/25 01/27/25 01/28/25
06:59 06:59 06:59
Intake Total 1360 / 1360
Balance 1360 / 1360
SaO2 96
Nasal Cannula flow liters per 2
minute
Physical Exam
General: Comfortable
HEENT: Normocephalic and Anicteric
Cardiovascular: S1-S2, Regular Rhythm, Murmur (n) and Rub (n)
Respiratory: Clear, Wheeze (n), Crackles (n), Rhonchi (n) and Non-Labored Respirations
GI: Soft, Non Distended and Non Tender
Neurology: Awake, Alert, Oriented and No Motor Deficits
Skin: Warm, Dry, Jaundice (n) and Rash (n)
Labs/Micro/Reports
Lab Data
01/26/25 05:31
01/26/25 05:31
Laboratory Results
01/26/25 01/26/25 01/27/25
16:31 00:34
APTT 56.4 H 174.1 H* 83.4 H
01/27/25
12:10
APTT Cancelled
Microbiology
01/24/25 11:05 Nasal Swab Influenza Types A & B (ENRIQUE) - Final
Negative for Influenza A & B, NAAT
Negative results must be combined with clinical observations
and patient history.
Nucleic Acid Amplification test (NAAT)performed on the
[employer] platform.
--- NOTE | 2025-01-27 14:41 | CM ---
CM reviewed pt with attending- ready for dc
SNF remains recommended
Bedside meeting with pt and she remains in agreement with [facility]
Call with sister with update
Pt does not meet medical criteria for BLS, WC van $130
Family declined, they will transport
IMM verbally completed, copy provided
Discharge Disposition- [facility] via family transport
Phone- [phone] Fax- [phone]
--- NOTE | 2025-01-27 14:55 | PTCARENOTE ---
Heparin gtt d/c per order, pt transitioned to Eliquis.
--- NOTE | 2025-01-27 15:25 | W.PN.HOSP.TC ---
Addendum entered and electronically signed by Rajinder Flanagan MD 01/28/25 15:52:
[id number]
Original Note:
Today's Communication/Plan
-
abx course
Eliquis
f/u spine, pcp, hematology, pulm outpt
Assessment / Plan
Assessment / Plan
84yo F with PMHX of chronic back pain s/p injections in the past, neuropathy, anxiety, GERD, insomnia, had twisted her back on 12/24/24, but initially without any symptoms, in 2 weeks woke up with severe lower back pain. MRI with multilevel DJD, no
significant spinal canal stenosis. Chronic compression deformities of T7, L1, L2, L3 and L5. Accidental findings of appendicolith without inflammatory changes on CT abd. Pain improved, patient able to ambulate and Ucx resulted with E.faecalis
sensitive to nitrofurantoin. Developed hypoxia on 01/24/25 2/2 pulmonary embolism in spite of Hep PPX
A/P:
#Acute respiratory hypoxic failure 2.2 acute most likely provoked pulmonary embolism
Mild RH strain on CT
Echo: EF 65-75%, normal LV functiona nd size, moderately decreased RV function, mild TR, elevated pulmonary pressure 34mmHg
hemodynamically stable, so no indication for thrombolysis
Pulm consult�follow-up pulmonary outpatient. Echo prior
Follow-up hematology outpatient
weaned off O2, does not qualify for O2 outpatient
Heparin drip and eventual DOAC�Eliquis today 10 mg twice daily for 7 days, then 5 mg twice daily
US LE neg for DVT
Might benefit from outpatient hematology eval
CT C/A/P without overt signs of neoplasia
PESI 103 Class III, 3.2-7.1% risk mortality in 30 days - initial IV heparin and IMU monitoring indicated, that can switch to oral if patient starts to objectively improve, plan Eliquis start on 01/27/25 AM
#Non-ischemic myocardial injury 2/2 PE
cardio consult
Trop followed, started to decrease
Back pain - resolved
#Chronic compression deformities of T7, L1, L2, L3 and L5
#DJD
Pain mgmt: patient reportedly was able to function and ambulate with current pain meds, however still has bouts of shooting pain when turning in the bed. Partially the problem is an expectations from the patient to have pain removed entirely and
immediately. Explained that will target relieve and it might take days.
PT/OT
-pain management outpt
#Appendicolith
no concern for inflammation on CT
#Lethargy on admission
#UTI
UA positive for infection, Cx growing enterococcus
Reasonable to treat
Nitrofurantoin as per Ucx x7 days
#Thrombocytosis
suspect reactive - resolved
follow CBC
#Leukocytosis
� Mostly reactive
� Follow-up PCP with CBC outpatient
� No obvious overt signs of infection
#anxiety
#GERD
#Neuropathy
cont home meds
DVT ppx hep
Full code
More than 30 minutes spent in discharge including
Final examination of the patient
Summarizing hospital stay
Instructions for continuing care to all relevant caregivers
Preparation of discharge records, prescriptions, and referral forms
Total time spent (in minutes): 36
Anticipated Discharge: Today
Subjective/Interval History
-
Date of Service: January 27, 2025
Weaned off oxygen, does not require oxygen upon ambulation. Switch to oral anticoagulation today
Objective Data
-
Vital Signs:
Vital Signs
Temp Pulse Resp BP Pulse Ox
98.0 F 69 20 155/99 94
01/27/25 15:00 01/27/25 14:00 01/27/25 14:00 01/27/25 14:00 01/27/25 13:27
I&O
01/26/25 01/27/25 01/28/25
06:59 06:59 06:59
Intake Total 1360 / 1360
Balance 1360 / 136
Review of Systems
-
History Source: Patient
All other systems: Reviewed and negative
Physical Exam
-
General: No Apparent Distress
HEENT: Normocephalic
Respiratory: Clear to Auscultation
GI: Soft, Nontender and Nondistended
Musculoskeletal: No Clubbing, No Cyanosis and No Edema
Neuro: Awake, Alert, Oriented and AO x 3
Psych: Calm
Data Reviewed
-
Diagnostic Radiology: Report Reviewed by me
CT Scan: Report Reviewed by me
Labs: Labs Reviewed by me
--- NOTE | 2025-01-27 15:28 | W.DS.TRANS ---
DC Summary - [employer]
-
Discharge Instructions:
Discharge Diagnosis/Procedures back pain, Pulmonary embolism
Diet Low Cholesterol
Activity As tolerated
Blood Work cbc and bmp in 1 week with pcp
Others Tests back imaging as per outpatient
Instructions:
Stand-Alone Forms:
Changes to Home Medications: Yes
Discharge Medications:
DC Medications w/original date entered in [employer]
ascorbic acid (vitamin C) 500 mg tablet (Vitamin C) 500 mg PO DAILY Supplement 01/17/25
fluoxetine 20 mg capsule 20 mg PO DAILY Depression 01/17/25
gabapentin 400 mg tablet 400 mg PO TID Neurological Condition 01/17/25
mirtazapine 30 mg tablet 30 mg PO HS Depression 01/17/25
omeprazole 20 mg tablet,delayed release 20 mg PO DAILY Gastrointestinal Issue 01/17/25
lidocaine 4 % topical patch 1 patch topical DAILY back pain 01/19/25
therapeutic multivitamin 1 tab PO DAILY Supplement 01/19/25
acetaminophen 325 mg tablet 650 mg (2 x 325 mg) PO Q4HPRN PRN mild pain/PATEL/temp> 100.4F #90 tabs 01/23/25
lidocaine 4 % topical patch 1 patch topical DAILY lower back pain #30 ea 01/23/25
nitrofurantoin monohydrate/macrocrystals 100 mg capsule 100 mg PO BID #11 caps 01/23/25
polyethylene glycol 3350 17 gram oral powder packet 17 g PO DAILYPRN PRN constipation #30 ea 01/23/25
apixaban 5 mg tablet (Eliquis) 10 mg (2 x 5 mg) PO BID #0 tabs 01/27/25
Home Medication Changes
therapeutic multivitamin 1 tab PO DAILY Supplement 01/19/25
acetaminophen 325 mg tablet 650 mg (2 x 325 mg) PO Q4HPRN PRN mild pain/PATEL/temp> 100.4F #90 tabs 01/23/25
lidocaine 4 % topical patch 1 patch topical DAILY lower back pain #30 ea 01/23/25
nitrofurantoin monohydrate/macrocrystals 100 mg capsule 100 mg PO BID #11 caps 01/23/25
polyethylene glycol 3350 17 gram oral powder packet 17 g PO DAILYPRN PRN constipation #30 ea 01/23/25
apixaban 5 mg tablet (Eliquis) 10 mg (2 x 5 mg) PO BID #0 tabs 01/27/25
Pending Results: No
[2025-01-27] MEDS: NEURONTIN PO (16:12)
--- NOTE | 2025-01-27 17:38 | PTCARENOTE ---
Pt for d/c to [facility]. IV and monitor equipment removed. Report called to facility. Belongings collected from room. D/c via wheelchair with niece who is to transport pt to facility.
== END 2025-01-27 17:45 | DRG 689 ==
LOC: IMU 10:57
PROVIDERS: Internal Medicine; ADMITTING PHYSICIAN Internal Medicine; ATTENDING PHYSICIAN Internal Medicine; CONSULT PHYSICIAN Internal Medicine Cardiovascular Disease; CONSULT PHYSICIAN Internal Medicine Critical Care Medicine; EMERGENCY PHYSICIAN Student in an Organized Health Care Education/Training Program; FAMILY PHYSICIAN Family Medicine
DX: N39.0 Urinary tract infection, site not specified (principal); I26.99 Other pulmonary embolism without acute cor pulmonale; J96.01 Acute respiratory failure with hypoxia; I5A Non-ischemic myocardial injury (non-traumatic); G89.29 Other chronic pain; B95.2 Enterococcus as the cause of diseases classified elsewhere; F32.A Depression, unspecified; K21.9 Gastro-esophageal reflux disease without esophagitis; R26.2 Difficulty in walking, not elsewhere classified; G62.9 Polyneuropathy, unspecified; F41.9 Anxiety disorder, unspecified; K38.1 Appendicular concretions; Z74.09 Other reduced mobility; M47.24 Other spondylosis with radiculopathy, thoracic region; M47.26 Other spondylosis with radiculopathy, lumbar region; D75.839 Thrombocytosis, unspecified; M51.369 Other intervertebral disc degeneration, lumbar region without mention of lumbar back pain or lower extremity pain; Z11.52 Encounter for screening for COVID-19; Z79.82 Long term (current) use of aspirin; Z79.899 Other long term (current) drug therapy
CPT/HCPCS: 71046; 71275; 72110; 72146; 72148; 80053; 80061; 81003; 81015; 83880; 84443; 84484; 85025; 85027; 85379; 85730; 86704; 86706; 86803; 87077; 87086; 87186; 87340; 87502; 87811; 93005; 93306; 93970; 96374; 96375; 97116; 97163; 97167; 97530; 97535; 99284; Q9967

== ENCOUNTER → 2025-02-06 09:18 | Outpatient (REF) | payer MEDICARE, SELFPAY ==
[2025-02-06 10:19] LABS: Hematocrit 41.1 % (37.0-47.0); Hemoglobin 13.1 g/dL (12.0-16.0); Mean Corp Hgb Conc. 31.9 g/dL (33.0-37.0); Mean Corpuscular Volume 95.4 fL (81.0-99.0); Nucleated Red Blood Cells % 0 %; Platelet Count 541 10^3/uL (130-400); Red Cell Dist. Width 12.7 % (11.5-14.5)
[2025-02-06 10:40] LABS: ALT (SGPT) 19 U/L (0-35); AST (SGOT) 16 U/L (14-36); Albumin 3.5 g/dl (3.5-5.0); Alkaline Phosphatase 79 U/L (38-126); Blood Urea Nitrogen 12 mg/dl (7-17); Calcium 9.6 mg/dl (8.4-10.2); Carbon Dioxide 26 mmol/L (22-30); Chloride 109 mmol/L (98-107); Glucose 88 mg/dl (70-99); HDL Cholesterol 58 mg/dl; LDL Cholesterol, Calculated 118 mg/dl; Potassium 4.8 mmol/L (3.5-5.1); Sodium 139 mmol/L (135-145); Total Protein 5.9 g/dl (6.3-8.2); Very Low Density Lipoprotein 20 mg/dl (0-30); eGFR > 60.00
[2025-02-06 11:12] LABS: TSH 1.63 uIU/ml (0.47-4.68)
== END ==
LOC: REG 09:18
PROVIDERS: ATTENDING PHYSICIAN Family Medicine
DX: R79.9 Abnormal finding of blood chemistry, unspecified (principal); E78.2 Mixed hyperlipidemia; M53.3 Sacrococcygeal disorders, not elsewhere classified
CPT/HCPCS: 36415; 80053; 80061; 84443; 85025